=== PATIENT | female | born 1960 | race Caucasian/White ===

== ENCOUNTER 2019-03-13 15:23 | Inpatient (IN) ==
[2019-03-13] MEDS ORDERED: Dexamethasone 4 MG/ML VIAL IVP ONE (16:22)
--- NOTE | 2019-03-13 17:03 | Emergency Department Note ---
Disposition Clinical Impression: Right sided weakness, Neck pain, Right shoulder pain, UTI (urinary tract infection) Disposition: Admitted As Inpatient Condition: Fair Forms: ED Satisfaction Letter Time of Disposition: 18:45 General Adult HPI - General Chief complaint: ED Weakness Stated complaint: fall Time Seen by Provider: 03/13/19 16:12 Source: patient, family Limitations: no limitations Nursing Notes Reviewed: Yes Vital Signs Reviewed: Yes - History of Present Illness HPI Narrative: Patient presents emergency Department with chief complaint of increasing neck pain and right arm pain but also with right arm weakness and right sided facial weakness. Patient states that the symptoms started a month ago. She went to an outside emergency department was told that she just had neck spasms and was put on Percocet and muscle relaxers has had no improvement of her symptoms since that time she has not made an appointment to see her doctor despite no improvement of her symptoms, today she fell forward hitting her head while leaning over because of pain she was hunched over because of pain in her arm and then fell forward and hit her head. She has a headache since hitting her head but no loss of consciousness. She states she still has severe right-sided shoulder and neck pain but also complains of right facial numbness, lip heaviness and swollen sensation as well as right arm weakness. She has had strokes in the past and this reminds her of her prior stroke she does not think she is expressing any right leg weakness but states that she could be. 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 Patient states that she thinks maybe she has had a little bit of slurring of her speech. She denies any CVA chest pain or shortness of breath fever chills cough sputum production. She denies abdominal pain nausea vomiting. She denies any other acute concerns. Pain Scale: 8 - Related Data Home Medications Medication Instructions Recorded Confirmed Alprazolam [Xanax] 1 mg PO TID 08/31/15 10/03/16 Aspirin Enteric Coated [Aspirin EC] 81 mg PO DAILY 08/31/15 10/03/16 Esomeprazole Magnesium [Nexium] 40 mg PO HS 08/31/15 10/03/16 Insulin DETEMIR [Levemir] 40 unit SQ HS 08/31/15 10/03/16 Lisinopril [Zestril] 20 mg PO BID 08/31/15 10/03/16 Metoprolol [Lopressor] 50 mg PO DAILY 08/31/15 10/03/16 Folic Acid 1 mg PO DAILY 10/03/16 10/03/16 Insulin ASPART [NovoLOG] 7 - 12 unit SQ TIDWM 10/03/16 10/03/16 Methotrexate [Otrexup] 15 mg PO SA 10/03/16 10/03/16 Previous Rx's Medication Instructions Recorded Hydrocodone/Acetaminophen 1 each PO Q6H #15 tablet 10/03/16 [Hydrocodon-Acetaminophn 10-325] Sulfamethoxazole/Trimeth DS 1 each PO BID #20 tablet 10/03/16 [Bactrim DS] Allergies Allergy/AdvReac Type Severity Reaction Status Date / Time tramadol Allergy Hypertensio Verified 10/03/16 09:22 n TAPE AdvReac BLISTERS Uncoded 08/31/15 11:00 All systems ED: reviewed and negative except as stated. Review of Systems: As Per HPI Past Medical History - Past Medical History Medical history: Reports: CVA, diabetes, GERD, hypertension, RA Surgical history: Reports: appendectomy, cholecystectomy, other Psychiatric history: Reports: anxiety, depression - Social History Smoking Status: Former smoker Smokeless Tobacco Status: No Alcohol use: Reports: none Drug use: Reports: none Physical Exam - General Limitations: no limitations General appearance: alert, in no apparent distress - Head Head exam: normocephalic, other (Small hematoma and abrasion noted over the right eye brow) - Eye Eye exam: Present: normal appearance, PERRL - ENT ENT exam: normal exam, normal oropharynx - Neck Neck exam: Present: normal inspection, full ROM, tenderness (Some mild tenderness of the paraspinal musculature on the right). Absent: meningismus - Chest Chest inspection: Present: normal inspection - Respiratory Respiratory exam: Present: normal lung sounds bilaterally. Absent: respiratory distress, wheezes - Cardiovascular Cardiovascular exam: Present: regular rate, normal rhythm. Absent: normal heart sounds, rubs, gallop - Abdominal Exam Abdominal exam: Present: soft, Non-Tender - Extremities Exam Extremities exam: Present: normal inspection, tenderness (Tenderness to palpation of the right shoulder region, at least partially reproduces her reported pain, old rotator cuff surgical site appears healthy. Decreased range of motion in relation to raising arm up over the head seemingly related to pain cannot completely rule out actual weakness as this cause.). Absent: full ROM - Expanded Lower Extremity Exam Neurovascular/Tendon exam: Present: normal capillary refill. Absent: pulse deficit, extremity cold to touch, pallor Gait: observed and normal - Back Exam Back exam: Present: normal inspection, full ROM. Absent: tenderness, CVA tenderness (R), CVA tenderness (L) - Neurological Exam Neurological exam: Present: alert, oriented X3, other (The patient does appear to have a slight right-sided facial droop, with puffing out her cheeks for right cheek does not puff out as much and with smile her right side does not go quite as much she describes decreased sensation on the right side her face compared to the left, but has a history of Mejia's palsy although reports that she had previously had resolution of symptoms. Right upper extremity has diminished biceps triceps and drying oven attendant strength compared to the left upper, but demonstrates 4+ to 5 minus strength in all muscle groups she can hold both arms in the air for 10 seconds without droop. Right lower extremity reveals normal strength of plantarflexion and dorsiflexion of the feet bilaterally. Right leg she is able hold the air for 5 seconds although does drop down slightly compared to the left leg and seems maybe slightly weaker.) - Psychiatric Psychiatric exam: Present: anxious - Skin Skin exam: Present: warm, dry, intact, normal color. Absent: rash, diaphoresis Course Vital Signs Temperature 98.2 F 03/13/19 15:48 Pulse Rate 92 03/13/19 15:48 Respiratory Rate 16 03/13/19 15:48 Blood Pressure 157/109 03/13/19 15:48 O2 Sat by Pulse Oximetry 98 03/13/19 15:48 Temperature 98.2 F 03/13/19 15:48 Pulse Rate 92 03/13/19 15:48 Respiratory Rate 16 03/13/19 15:48 Blood Pressure 157/109 03/13/19 15:48 O2 Sat by Pulse Oximetry 98 03/13/19 15:48 Oxygen Delivery Oxygen Delivery Room Air Medical Decision Making - MDM Narrative Medical decision making narrative: Patient's symptoms are very difficult to assess in regards to whether or not her reported weakness is related to pain she has a history of prior stroke but she also has a history of Mejia's palsy and also has a history of chronic pain issues and shoulder surgeries and multiple prior problems. She does have some right- sided weakness is has however been present for all month, she did not have a workup previously for this. She reports worsening over the last 24 hours but nothing within the time frame for TPA. Workup was initiated for possible stroke as well as possible trauma, related to her fall hitting her head. 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 CT of the cervical spine showed disc protrusions at C6-C7 and C5-C6 no fracture no acute abnormality Basic laboratory studies showed mild hyperglycemia of 263, and a mild accent ptosis of 12,000, no other acute blood abnormality. Patient has evidence for UTI positive nitrite positive Estrace positive white blood cells positive bacteria. Patient was given a dose of IV Rocephin for this. Upon presentation she was given IV Decadron for her neck pain, she had already had Percocet and a muscle relaxer at home. After imaging showed no CVT findings she was also given IV Toradol, she was also given a by mouth aspirin for potential stroke like symptoms. According to the after further talking and the she has not had strokelike symptoms for over 3-4 years overall small, she has no chronic deficits from a similar she has had Mejia's palsy in the past she does have some right upper extremity weakness, and questions some right-sided leg weakness she also is face symptoms and I feel like her speech sounds just slightly slurred the states he is not sure of its any different or not. She will be admitted to the hospital for further evaluation and management of potential strokelike symptomatology. - Lab Data Result diagrams: 03/13/19 16:43 03/13/19 16:43 Lab Results 03/13/19 03/13/19 03/13/19 Range/Units 16:43 16:43 16:56 WBC 12.2 H (4.3-11.1) K/mcL RBC 5.07 H (3.82-4.97) M/mcL Hgb 14.7 (11.5-15.4) g/dL Hct 43.0 (35.3-44.9) % MCV 84.8 (83.0-100.0) fL MCH 29.0 (28.0-33.3) pg MCHC 34.2 (31.6-35.5) g/dL RDW 13.0 (11.5-14.5) % Plt Count 308 (140-400) K/mcL MPV 9.1 L (9.4-12.4) fL Immature Gran % 0.3 (0-4) % Seg Neutrophils % 57.1 % Lymphocytes % 31.5 % Monocytes % 8.0 % Eosinophils % 2.7 % Basophils % 0.4 % Neutrophils # 6.9 (1.6-8.9) K/mcL Lymphocytes # 3.8 (0.6-4.6) K/mcL Monocytes # 1.0 (0.0-1.3) K/mcL Eosinophils # 0.3 (0.0-0.6) K/mcL Basophils # 0.1 (0.0-0.2) K/mcL Sodium 135 L (136-145) mEq/L Potassium 4.1 (3.5-5.1) mEq/L Chloride 103 (98-107) mEq/L Carbon Dioxide 23 (23-29) mEq/L BUN 18 (8-23) mg/dL Creatinine 0.85 (0.60-1.20) mg/dL Est GFR ( Amer) > 60 (> 60) Est GFR (Non-Af Amer) > 60 (> 60) BUN/Creatinine Ratio 21 (6-26) Glucose 263 H (70-105) mg/dL Calculated Osmolality 291 (280-300) Calcium 9.7 (8.6-10.3) mg/dL Magnesium 1.7 (1.6-2.6) mg/dL Troponin I < 0.03 (< 0.04) ng/mL Urine Color Dark Yellow (Yellow) Urine Clarity Turbid A (Clear) Urine pH 5.0 (5.0-8.0) pH Units Ur Specific [place] 1.029 H (1.010-1.025) Urine Protein 100 H (Neg-Trace) mg/dL Urine Glucose (UA) >=1000 H (Normal) mg/dL Urine Ketones Trace H (Negative) mg/dL Urine Blood Large H (Negative) Urine Nitrite Negative (Negative) Urine Bilirubin Negative (Negative) Urine Urobilinogen Normal (Normal) mg/dL Ur Leukocyte Esterase Moderate H (Negative) Urine Microscopic RBC Present (0-3) per hpf Urine Microscopic WBC TNTC H (0-3) per hpf Ur Squamous Epith Cells Many H (None-Few) per lpf Urine Bacteria Many H (None-Few) per hpf Ur Culture Indicated? YES A (NO)
[2019-03-13 17:05] LABS: Basophils # 0.1 K/mcL (0.0-0.2); Basophils % 0.4 %; Eosinophils # 0.3 K/mcL (0.0-0.6); Eosinophils % 2.7 %; Hemoglobin 14.7 g/dL (11.5-15.4); Immature Granulocytes % 0.3 % (0-4); Lymphocytes # 3.8 K/mcL (0.6-4.6); Lymphocytes % 31.5 %; Mean Corpuscular HGB Conc 34.2 g/dL (31.6-35.5); Mean Corpuscular Volume 84.8 fL (83.0-100.0); Mean Platelet Volume 9.1 fL (9.4-12.4); Neutrophils # 6.9 K/mcL (1.6-8.9); Platelet Count 308 K/mcL (140-400); Red Blood Count 5.07 M/mcL (3.82-4.97); Segmented Neutrophils % 57.1 %; White Blood Count 12.2 K/mcL (4.3-11.1)
[2019-03-13 17:08] LABS: Bilirubin,Urine Negative (Negative); Blood,Urine Large (Negative); Clarity,Urine Turbid (Clear); Color,Urine Dark Yellow (Yellow); Glucose,Urine (UA) >=1000 mg/dL (Normal); Ketones,Urine Trace mg/dL (Negative); Leukocyte Esterase,Urine Moderate (Negative); Nitrite,Urine Negative (Negative); Protein,Urine 100 mg/dL (Neg-Trace); Specific Gravity,Urine 1.029 (1.010-1.025); Urobilinogen,Urine Normal (Normal)
[2019-03-13 17:09] LABS: Bacteria,Urine Many per hpf (None-Few); Squamous Epithelial Cell,Urine Many per lpf (None-Few); WBC,Urine TNTC per hpf (0-3)
[2019-03-13 17:34] LABS: RBC,Urine Present per hpf (0-3)
[2019-03-13 17:38] LABS: BUN/Creatinine Ratio 21 (6-26); Blood Urea Nitrogen 18 mg/dL (8-23); Calcium 9.7 mg/dL (8.6-10.3); Carbon Dioxide 23 mEq/L (23-29); Chloride 103 mEq/L (98-107); Glucose 263 mg/dL (70-105); Magnesium 1.7 mg/dL (1.6-2.6); Osmolality,Calculated 291 (280-300); Potassium 4.1 mEq/L (3.5-5.1); Sodium 135 mEq/L (136-145); Troponin I < 0.03 ng/mL (< 0.04); eGFR For African Americans > 60 (> 60); eGFR For Non-African Americans > 60 (> 60)
[2019-03-13] MEDS ORDERED: cefTRIAXone 1,000 MG in Water for inj. (sterile) 20 ML 10 ML IVP ONE (18:31)
[2019-03-13] MEDS ORDERED: Aspirin 325 MG TABLET PO ONE (18:38)
[2019-03-13] MEDS ORDERED: Ketorolac 30 MG/ML VIAL IVP ONE (18:38)
--- NOTE | 2019-03-13 22:52 | Internal Med History&Physical ---
<Raza Rodríguez S - Last Filed: 03/14/19 02:18> Date of Encounter: 03/14/19 Time of Encounter: 23:17 Internal Medicine - H&P: HPI Chief complaint: weakness Admitted From: Home Plans for Post Hospital Care: Home History of present illness: Ms. Daniels is a 59 year old female with PMH of CVA, diabetes, GERD, hypertension, and RA on MTX. She is presenting to the ER with the chief complaint of increasing pain in her neck and arm. She also has weakness and although it is chronic, she has acutely worsened symptoms. She has facial weakness as well. She does have a hx of Mejia's palsy but has no lasting deficits and reported to her SO that "her s/s might be coming back." She c/o complete right face weakness, li p numbness, eye lid numbness. She denies right LE weakness. She states noticed her face was droopy and speech slurred. She did also report falling today and hitting her head, states that she had no LOC. She is unsure what precipitated her fall and she states that she just all of a sudden fell forward. Denies any chest pain or palpiltations previously. Denies pre-syncopal symptoms. She also c/o dysuria x 1 week in duration. She denies hematuria. Does have some increase in frequency. She was found to have evidence of UTI on UA in the ER. CT head showed chronic ischemic changes, low lying cerebellar tonsils without acute bleed. She will be admitted for further evaluation. Past Med Surg Social Fam HX - Past Medical History Medical history: CVA, diabetes, GERD, hypertension, RA Additional medical history: HTN. History of CVA. GERD. DM. Urge incontinence Psychiatric history: anxiety, depression - Past Surgical History Surgical History: appendectomy, cholecystectomy, other Additional surgical history: TUBAL. back sx. right kidney removed - Social History Smoking Status: Former smoker Smokeless Tobacco Status: No Alcohol use: none Drug use: none - Family History Father Hx Family Cardiac Disorders: Yes Mother Hx Family Cardiac Disorders: Yes Internal Medicine - H&P: Meds Alprazolam [Xanax] 1 mg PO TID PRN 08/31/15 [History] Aspirin Enteric Coated [Aspirin EC] 81 mg PO DAILY 08/31/15 [History] Esomeprazole Magnesium [Nexium] 40 mg PO HS 08/31/15 [History] Insulin DETEMIR [Levemir] 40 unit SQ HS 08/31/15 [History] Lisinopril [Zestril] 20 mg PO BID 08/31/15 [History] Metoprolol [Lopressor] 50 mg PO DAILY 08/31/15 [History] Folic Acid 1 mg PO DAILY 10/03/16 [History] Insulin ASPART [NovoLOG] 7 - 12 unit SQ TIDWM 10/03/16 [History] Methotrexate [Otrexup] 15 mg PO SA 10/03/16 [History] Sulfamethoxazole/Trimeth DS [Bactrim DS] 1 each PO BID #20 tablet 10/03/16 [Rx] Hydrocodone/Acetaminophen [Hydrocodon-Acetaminophn 10-325] 1 each PO Q6H PRN 0 03/13/19 [History] Allergy/AdvReac Type Severity Reaction Status Date / Time tramadol Allergy Hypertensio Verified 10/03/16 09:22 n TAPE AdvReac BLISTERS Uncoded 08/31/15 11:00 All Systems PM: A 10-system review of systems was performed and is negative for pertinent findings except as documented above in the HPI. - Constitutional Constitutional: falls, no chills, no fever(s) - EENT Eyes: no blurry vision, no change in vision Ears: no tinnitus Nose, mouth and throat: no bleeding gums - Cardiovascular Cardiovascular ROS IM: lightheadedness, no chest pain, no diaphoresis, no dyspnea, no dyspnea on exertion - Respiratory Respiratory: no cough, no dyspnea, no dyspnea on exertion - Gastrointestinal Gastrointestinal: no abdominal pain, no diarrhea, no nausea, no vomiting - Genitourinary Genitourinary: dysuria, urinary frequency, no hematuria - Musculoskeletal Musculoskeletal ROS IM: neck pain, numbness, tingling, no back pain - Integumentary Integumentary IM: no erythema, no unusual bruising - Neurological Neurological ROS: dizziness, focal weakness, frequent falls, lack of coordination, numbness, tingling, weakness, no abnormal gait, no loss of vision - Psychiatric Psychiatric: no anxiety, no depression - Endocrine Endocrine IM: no fatigue - Hematologic/Lymphatic Hematologic/Lymphatic: no easy bleeding, no easy bruising - Constitutional Vitals: Temp Pulse Resp BP Pulse Ox 98.2 F 77 18 187/108 97 03/13/19 15:48 03/13/19 20:03 03/13/19 20:03 03/13/19 20:03 03/13/19 20:03 Exam: general - aox3, nad, laying in bed comfortably heent - ncat, EOMI, PERRLA, MMM neck - supple, no jvd cardio - rrr,s1s2 cta no mrg lungs - ctab without wheeze/rhonchi/rales, not in respiratory distress abd - mild suprapubic tenderness without rebound or guarding, no peritoneal signs back - no rash, no cva tenderness neuro - right sided weakness and diminished strength CN5: decreased sensation of the right face CN7: unable to lift right forehead as high as left, appears to have weakness with puffing cheeks out and asymmetrical smile abnormal finger to nose test on the right heel to junior test ok both sides skin - warm,dry,intact; good skin turgor psych - appropriate mood/aafffeect Internal Med - H&P Results - Labs CBC & Chem 7: 03/14/19 00:10 03/14/19 00:10 Labs: Short CBC 03/13/19 Range/Units 16:43 WBC 12.2 H (4.3-11.1) K/mcL Hgb 14.7 (11.5-15.4) g/dL Hct 43.0 (35.3-44.9) % Plt Count 308 (140-400) K/mcL Neutrophils # 6.9 (1.6-8.9) K/mcL BMP 03/13/19 16:43 Sodium 135 L Potassium 4.1 Chloride 103 Carbon Dioxide 23 BUN 18 Creatinine 0.85 Glucose 263 H Calcium 9.7 Cardiac Enzymes 03/13/19 Range/Units 16:43 Troponin I < 0.03 (< 0.04) ng/mL Urine 03/13/19 Range/Units 16:56 Urine Color Dark Yellow (Yellow) Urine Clarity Turbid A (Clear) Urine pH 5.0 (5.0-8.0) pH Units Ur Specific [place] 1.029 H (1.010-1.025) Urine Protein 100 H (Neg-Trace) mg/dL Urine Glucose (UA) >=1000 H (Normal) mg/dL - Impressions ITS Impressions Cervical Spine CT 03/13/19 16:22 IMPRESSION: No evidence of an acute cervical spine fracture. Straightening of the normal cervical lordosis may be secondary to degenerative change, positioning and/or muscle spasm. Degenerative disc disease with broad-based disc protrusions/herniations at C5-C6 and C6-C7. D/ / Carlton Buckley MD / Carlton Buckley MD Interpreting Provider: Carlton Buckley MD Chest X-Ray 03/13/19 16:22 IMPRESSION: No evidence of acute cardiopulmonary disease. D/ / Mario Carvajal MD / Mario Carvajal MD Interpreting Provider: Mario Carvajal MD Head CT 03/13/19 16:22 IMPRESSION: Chronic ischemic changes as above. No acute intracranial abnormality. Low position of the cerebellar tonsils. 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 XR chest showing no acute cardiopulmonary disease Plan: - NIHSS stroke scaling - neuro checks - HbA1c pending - lipid panel pending - neurology consulted - MRI head/brain and c-spine for AM - allow for permissive HTN - ECHO and carotid US pending - FEN: ADA diet after bedside swallow - dvt proph: scd - dispo: neurology evaluation, PTOT evaluation (2) UTI (urinary tract infection) Current Visit: Yes Status: Acute Assessment and plan: Pt with 1 week hx of dysuria UA (+) for ketones, blood, leukocyte esterase and WBC Only meets 1 SIRS criteria for WBC, remains afebrile No CVA tenderness on exam Plan: - con't rocephin day 1 - urine cx pending Qualifiers: Urinary tract infection type: acute cystitis Hematuria presence: without hematuria Qualified Code(s): N30.00 - Acute cystitis without hematuria (3) T2DM (type 2 diabetes mellitus) Current Visit: No Status: Chronic Assessment and plan: T2DM on home insulin. LDSS. ADA diet. Accuchecks. Levemir 12 u SQ hs. 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 Qualifiers: Hypertension type: essential hypertension Qualified Code(s): I10 - Essential (primary) hypertension (6) GERD (gastroesophageal reflux disease) Current Visit: No Status: Chronic Assessment and plan: con't home meds when reconciled. Qualifiers: Esophagitis presence: esophagitis presence not specified Qualified Code(s): K21.9 - Gastro-esophageal reflux disease without esophagitis (7) Neck pain Current Visit: Yes Status: Acute Assessment and plan: See above for right sided weakness. (8) Right shoulder pain Current Visit: Yes Status: Acute Assessment and plan: See above. Qualifiers: Chronicity: unspecified Qualified Code(s): M25.511 - Pain in right shoulder - Time Spent With Patient Total time spent is greater than 50% in coordination of care (as documented) at patient's floor/unit and/or counseling patient: 25 - 35 minutes <Tej Zimmer - Last Filed: 03/14/19 08:04> Date of Encounter: 03/13/19 Internal Medicine - H&P: HPI History of present illness: Ms. Daniels is a 59 year old female All Systems PM: A 10-system review of systems was performed and is negative for pertinent findings except as documented above in the HPI. - Constitutional Vitals: Temp Pulse Resp BP Pulse Ox 98.3 F 68 14 145/79 94 03/14/19 07:30 03/14/19 07:30 03/14/19 07:30 03/14/19 07:30 03/14/19 07:30 Internal Med - H&P Results - Labs CBC & Chem 7: 03/14/19 00:10 03/14/19 00:10 Labs: Short CBC 03/13/19 03/14/19 Range/Units 16:43 00:10 WBC 12.2 H 10.2 (4.3-11.1) K/mcL Hgb 14.7 14.1 (11.5-15.4) g/dL Hct 43.0 40.7 (35.3-44.9) % Plt Count 308 279 (140-400) K/mcL Neutrophils # 6.9 (1.6-8.9) K/mcL BMP 03/13/19 03/14/19 16:43 00:10 Sodium 135 L 133 L Potassium 4.1 4.3 Chloride 103 102 Carbon Dioxide 23 20 L BUN 18 19 Creatinine 0.85 0.70 Glucose 263 H 328 H Calcium 9.7 9.4 Cardiac Enzymes 03/13/19 Range/Units 16:43 Troponin I < 0.03 (< 0.04) ng/mL Urine 03/13/19 Range/Units 16:56 Urine Color Dark Yellow (Yellow) Urine Clarity Turbid A (Clear) Urine pH 5.0 (5.0-8.0) pH Units Ur Specific [place] 1.029 H (1.010-1.025) Urine Protein 100 H (Neg-Trace) mg/dL Urine Glucose (UA) >=1000 H (Normal) mg/dL - Impressions ITS Impressions Cervical Spine CT 03/13/19 16:22 IMPRESSION: No evidence of an acute cervical spine fracture. Straightening of the normal cervical lordosis may be secondary to degenerative change, positioning and/or muscle spasm. Degenerative disc disease with broad-based disc protrusions/herniations at C5-C6 and C6-C7. D/ / Carlton Buckley MD / Carlton Buckley MD Interpreting Provider: Carlton Buckley MD Chest X-Ray 03/13/19 16:22 IMPRESSION: No evidence of acute cardiopulmonary disease. D/ / Mario Carvajal MD / Mario Carvajal MD Interpreting Provider: Mario Carvajal MD Head CT 03/13/19 16:22 IMPRESSION: Chronic ischemic changes as above. No acute intracranial abnormality. Low position of the cerebellar tonsils. D/ / Carlton Buckley MD / Carlton Buckley MD Interpreting Provider: Carlton Buckley MD - Time Spent With Patient Total time spent is greater than 50% in coordination of care (as documented) at patient's floor/unit and/or counseling patient: - Attending Attestation I performed a history and physical examination patient and discussed her management with the resident. I reviewed the resident's note and agree with the documented the plan of care.
[2019-03-13] MEDS ORDERED: D5% in Water 1,000 ML IVC PRN (22:54)
[2019-03-13] MEDS ORDERED: Naloxone 0.4 MG/ML INJ IVP PRN (22:54)
[2019-03-13] MEDS ORDERED: *HR* Dextrose 50 % in Water (Syg) 50 ML SYRINGE IVP PRN (22:54)
[2019-03-13] MEDS ORDERED: Dextrose Gel 15 GM/37.5 ML TUBE PO PRN ×2 (22:54)
[2019-03-13] MEDS ORDERED: *HR* Heparin 5,000 UNIT/ML VIAL SQ SCH (23:00)
[2019-03-13] MEDS: Insulin LISPRO 300 UNITS/3 ML VIAL SQ SCH ×2 (23:29→23:30)
[2019-03-14] MEDS ORDERED: *HR* HYDROcodone/Acet 10/325 mg TABLET PO ONE (00:09)
[2019-03-14] MEDS ORDERED: Naloxone 0.4 MG/ML INJ IVP PRN (00:18)
[2019-03-14 00:42] LABS: Hematocrit 40.7 % (35.3-44.9); Hemoglobin 14.1 g/dL (11.5-15.4); Mean Corpuscular HGB Conc 34.6 g/dL (31.6-35.5); Mean Corpuscular Hemoglobin 29.3 pg (28.0-33.3); Mean Corpuscular Volume 84.4 fL (83.0-100.0); Mean Platelet Volume 9.1 fL (9.4-12.4); Platelet Count 279 K/mcL (140-400); Red Blood Count 4.82 M/mcL (3.82-4.97); Red Cell Distribution Width 12.9 % (11.5-14.5); White Blood Count 10.2 K/mcL (4.3-11.1)
[2019-03-14 00:49] LABS: BUN/Creatinine Ratio 27 (6-26); Blood Urea Nitrogen 19 mg/dL (8-23); Calcium 9.4 mg/dL (8.6-10.3); Carbon Dioxide 20 mEq/L (23-29); Chloride 102 mEq/L (98-107); Chol/HDL Ratio 3.6 (0-4.9); Glucose 328 mg/dL (70-105); Osmolality,Calculated 291 (280-300); Potassium 4.3 mEq/L (3.5-5.1); Sodium 133 mEq/L (136-145); eGFR For African Americans > 60 (> 60); eGFR For Non-African Americans > 60 (> 60)
[2019-03-14 00:55] LABS: INR 1.1; Prothrombin Time 11.9 Seconds (9.4-12.1)
[2019-03-14] MEDS ORDERED: D5% in Water 1,000 ML IVC PRN (02:16)
[2019-03-14] MEDS ORDERED: ALPRAZolam 1 MG TABLET PO PRN (04:14)
[2019-03-14] MEDS: *HR* HYDROcodone/Acet 10/325 mg TABLET PO PRN ×2 (04:30→21:11)
[2019-03-14] MEDS ORDERED: Perflutren Lipid Microsphere 1.3 ML in 0.9 % Sodium Chloride 8.7 ML IVP ONE (08:28)
[2019-03-14 08:30] LABS: Estimated Average Glucose 255 mg/dl; Hemoglobin A1C 10.5 %
[2019-03-14] MEDS: Aspirin 81 MG TAB.CHEW PO SCH (09:51)
[2019-03-14] MEDS: cefTRIAXone 1,000 MG in Water for inj. (sterile) 20 ML 10 ML IVP SCH (09:51)
[2019-03-14] MEDS: Insulin LISPRO 300 UNITS/3 ML VIAL SQ SCH ×4 (09:52→21:11)
--- NOTE | 2019-03-14 09:57 | Neurology - Consult Note ---
<Yaniv Woods - Last Filed: 03/14/19 11:29> Date of Encounter: 03/14/19 Time of Encounter: 09:51 Assessment and Plan (1) Right sided weakness Current Visit: Yes Status: Acute neuro consulted with concerns for suspected CVA Presents with increasing right-sided weakness and sensory deficits as well as falls ongoing for approximately 3 weeks Symptoms are progressing over the last 24 hours and include facial droop and slurred speech which has since resolved Etiology remains unclear CT of head in the ED negative for acute intracranial abnormality showing chronic infarcts and chronic ischemic disease proceed with stroke workup PLAN: -MRI head/brain without contrast -BL Carotid doppler -TTE -Continue ASA, recommend adding statin for now -NIHSS now and then per protocol -c/w tx underlying medical conditions; c/w medical and supportive care History of Present Illness Chief complaint: Rt sided sensory loss and loss of strength x3 weeks HPI: Ms. Daniels is a 59 year old female the PMH of CVA, DM, HTN and are on MTX. She presented to the ED with a chief complaint of right-sided arm and leg pain. This has been ongoing x 3 weekshe has been getting progressively worse. Yesterday she reports developing right-sided facial droop and slurred speech. 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 This time of my assessment this morning the slurred speech and facial droop has resolved but she is now complaining of severely diminished right arm and leg sensation as well as bilateral facial numbness and left arm numbness with sparing of the left leg. She reports difficulty moving her Rt leg and states that it was dragging yesterday morning while getting out of bed to use the bathroom. This resulted in a fall with her hitting her head. She denies any headaches, visual disturbances, dysphagia, head or neck pain/stiffness, denies any chest pain, dyspnea, or palpitations. She admits to dysuria for approximately the last week. CT of the C-spine completed and negative for acute fractures. Additionally degenerative changes. CT of head negative for acute intercranial abnormality. revealing bilateral remote basal ganglia lacunar infarcts most numerous on the left with mild patchy periventricular and subcortical white matter low attenuation that is nonspecific most consistent with chronic small vessel ischemia. There is also low position of the cerebellar tonsils. Past Med Surg Social Fam HX - Past Medical History Medical history: CVA, diabetes, GERD, hypertension, RA Additional medical history: HTN. History of CVA. GERD. DM. Urge incontinence Psychiatric history: anxiety, depression - Past Surgical History Surgical History: appendectomy, cholecystectomy, other Additional surgical history: TUBAL. back sx. right kidney removed - Social History Smoking Status: Former smoker Smokeless Tobacco Status: No Alcohol use: none Drug use: none - Family History Father Hx Family Cardiac Disorders: Yes Mother Hx Family Cardiac Disorders: Yes Medications and Allergies Alprazolam [Xanax] 1 mg PO TID PRN 08/31/15 [History] Aspirin Enteric Coated [Aspirin EC] 81 mg PO DAILY 08/31/15 [History] Esomeprazole Magnesium [Nexium] 40 mg PO HS 08/31/15 [History] Insulin DETEMIR [Levemir] 40 unit SQ HS 08/31/15 [History] Lisinopril [Zestril] 20 mg PO BID 08/31/15 [History] Metoprolol [Lopressor] 50 mg PO DAILY 08/31/15 [History] Folic Acid 1 mg PO DAILY 10/03/16 [History] Insulin ASPART [NovoLOG] 7 - 12 unit SQ TIDWM 10/03/16 [History] Methotrexate [Otrexup] 15 mg PO SA 10/03/16 [History] Sulfamethoxazole/Trimeth DS [Bactrim DS] 1 each PO BID #20 tablet 10/03/16 [Rx] Hydrocodone/Acetaminophen [Hydrocodon-Acetaminophn 10-325] 1 each PO Q6H PRN 03/13/19 [History] Allergy/AdvReac Type Severity Reaction Status Date / Time tramadol Allergy Hypertensio Verified 10/03/16 09:22 n TAPE AdvReac BLISTERS Uncoded 08/31/15 11:00 All Systems: The remainder of the systems were reviewed and are negative Review of Systems: REVIEW OF SYSTEMS GENERAL: Negative for any nausea, vomiting, fevers, chills NEUROLOGIC: Negative for any blurry vision, blind spots, double vision, dysphagia, hemiparesis, ataxia Positive-unilateral weakness RUE, RLE, disequalibrium, ataxia 2/2 Rt leg weakness, diminished sensation in bilateral upper extremities, B/L face and Right leg, Rt facial droop, and slurred speech HEENT: Positive- falls resulting in her hitting her head CARDIAC: Negative for any chest pain, dyspnea, palpitations GASTROINTESTINAL: Negative for any nausea, vomiting, MUSCULOSKELETAL: Positive unilateral loss of strength RUE, RLE, decreased activity tolerance Physical Examination - Vital Signs Vital Signs: Initial Vital Signs Temp Pulse Resp BP Pulse Ox 98.2 F 92 16 157/109 98 03/13/19 15:48 03/13/19 15:48 03/13/19 15:48 03/13/19 15:48 03/13/19 15:48 - Exam Exam: Examination: General Examination: *CONSTITUTIONAL: Alert and oriented x3, no acute distress *GENERAL APPEARANCE OF PATIENT appears healthy and well groomed *EYES: pupils equal, round, reactive to light and accommodation, conjunctiva clear *CARDIOVASCULAR no peripheral edema, distal temperature normal, dorsalis pedis pulses normal. see vitals Musculoskeletal: *GAIT AND STATION deferred by patient *ASSESSMENT OF MUSCLE STRENGTH IN THE UPPER AND LOWER EXTREMITIES right deltoid, bicep, tricep, sales data analyst strength, hip flexors ,anterior tibialis, dorsoflexion of the foot 4/5, left deltoid, bicep, tricep, sales data analyst strength, hip flexors, anterior tibialis, and dorsoflexion of the foot 4/5; strength is asymmetrical with L>R *MUSCLE TONE IN THE UPPER AND LOWER EXTREMITIES normal. No abnormal movements, fasciculations or atrophy identified. Neurological: *ORIENTATION to person, situation, time and place *RECURRENT AND REMOTE MEMORY intact *ATTENTION AND CONCENTRATION are normal *LANGUAGE FUNCTION no significant aphasia or dysarthia was noted. *FUND OF KNOWLEDGE aware of current events, past history, vocabulary *MENTAL attention span and concentration normal. *CN II optic fundi were normal, no papilledema noted. *CN III,IV, PERRLA extraocular eye movements were full, no nystagmus and no ptosis noted. *CN V B/L diminished sensation of the face *CN VII asymmetrical facial movement with decreased innervation of Rt mouth; has a h/o bells palsy rt face *CN VIII shows no significant hearing loss on exam *CN IX,,X palate elevated symmetrically *CN XI normal strength in the sternocleidomastoid muscles, symmetrical shoulder shrugging. *CN XII Rightward tongue deviation *SENSORY EXAMINATION abnormal sensory exam reporting right-sided sensory loss in the RUQ ED, RLE and right face and diminished left-sided sensation in the left face, LUE with sparing of the LLE *REFLEXES: deep tendon reflexes were normal and symmetrical in the bilateral triceps, biceps and brachioradialis, grade 4/4, left patellar 4/4 abse nt right patellar S/P knee surgery, no pathological reflexes were noted. *CEREBELLAR TESTING normal finger to nose, heel/knee/junior *PAIN LEVEL 5/10 right upper extremity and right lower extremity described as dull and constant Results - Laboratory Findings CBC and BMP: 03/14/19 00:10 03/14/19 00:10 Abnormal lab findings: Abnormal lab results WBC 12.2 K/mcL (4.3-11.1) H 03/13/19 16:43 RBC 5.07 M/mcL (3.82-4.97) H 03/13/19 16:43 MPV 9.1 fL (9.4-12.4) L 03/14/19 00:10 Sodium 133 mEq/L (136-145) L 03/14/19 00:10 Carbon Dioxide 20 mEq/L (23-29) L 03/14/19 00:10 27 (6-26) H 03/14/19 00:10 Glucose 328 mg/dL (70-105) H 03/14/19 00:10 POC Glucose 325 mg/dL (70-99) H 03/13/19 23:22 10.5 % (-5.6) H 03/14/19 00:10 33 mg/dL (40-59) L 03/14/19 00:10 Turbid (Clear) A 03/13/19 16:56 Ur Specific [place] 1.029 (1.010-1.025) H 03/13/19 16:56 100 mg/dL (Neg-Trace) H 03/13/19 16:56 >=1000 mg/dL (Normal) H 03/13/19 16:56 Trace mg/dL (Negative) H 03/13/19 16:56 Large (Negative) H 03/13/19 16:56 Ur Leukocyte Esterase Moderate (Negative) H 03/13/19 16:56 TNTC per hpf (0-3) H 03/13/19 16:56 Ur Squamous Epith Cells Many per lpf (None-Few) H 03/13/19 16:56 Many per hpf (None-Few) H 03/13/19 16:56 Ur Culture Indicated? YES (NO) A 03/13/19 16:56 - Diagnostic Findings Additional findings: CT/CT head/brain wo con IMPRESSION: Chronic ischemic changes as above. No acute intracranial abnormality. Low position of the cerebellar tonsils. CT/CT cervical spine wo con IMPRESSION: No evidence of an acute cervical spine fracture. Straightening of the normal cervical lordosis may be secondary to degenerative change, positioning and/or muscle spasm. Degenerative disc disease with broad-based disc protrusions/herniations at C5-C6 and C6-C7. Consult Discharge Plan - Plan Referrals: Eliz Mcgill MD [Primary Care Provider] - <Jordin Mack - Last Filed: 03/14/19 18:19> Date of Encounter: 03/14/19 Assessment and Plan (1) Right sided weakness Current Visit: Yes Status: Acute I have personally performed a [id number] assessment of the patient and have reviewed the PA/MANAGER LVN note. My impressions are as follows: I agree with the assessment and plan as stated above. MRI scan of the brain and carotid Doppler studies are yet pending. I agree with maintaining aspirin 81 mg daily. Also continued aggressive management of stroke risk factors. Further recommendations will be made pending the outcome of the MRI scan. History of Present Illness HPI: Chart was reviewed, patient was seen and examined independently. Case was discussed with the PEN MAKER. I agree with his assessment of the history of present illness as stated above. Since his assessment the echocardiogram has been completed. The study was suboptimal however no evidence of a cardioembolic source of embolus. All Systems: The remainder of the systems were reviewed and are negative Review of Systems: The balance of the systems review is negative. Physical Examination - Vital Signs Vital Signs: Initial Vital Signs Temp Pulse Resp BP Pulse Ox 98.2 F 92 16 157/109 98 03/13/19 15:48 03/13/19 15:48 03/13/19 15:48 03/13/19 15:48 03/13/19 15:48 - Exam Exam: I have personally performed a [id number]-[id number] assessment of the patient and have reviewed the PA/MANAGER LVN note. My impressions are as follows: I agree with the neurologic examination is documented above. Results - Laboratory Findings CBC and BMP: 03/14/19 00:10 03/14/19 00:10 Abnormal lab findings: Abnormal lab results WBC 12.2 K/mcL (4.3-11.1) H 03/13/19 16:43 RBC 5.07 M/mcL (3.82-4.97) H 03/13/19 16:43 MPV 9.1 fL (9.4-12.4) L 03/14/19 00:10 Sodium 133 mEq/L (136-145) L 03/14/19 00:10 Carbon Dioxide 20 mEq/L (23-29) L 03/14/19 00:10 27 (6-26) H 03/14/19 00:10 Glucose 328 mg/dL (70-105) H 03/14/19 00:10 POC Glucose 325 mg/dL (70-99) H 03/13/19 23:22 10.5 % (-5.6) H 03/14/19 00:10 33 mg/dL (40-59) L 03/14/19 00:10 Turbid (Clear) A 03/13/19 16:56 Ur Specific [place] 1.029 (1.010-1.025) H 03/13/19 16:56 100 mg/dL (Neg-Trace) H 03/13/19 16:56 >=1000 mg/dL (Normal) H 03/13/19 16:56 Trace mg/dL (Negative) H 03/13/19 16:56 Large (Negative) H 03/13/19 16:56 Ur Leukocyte Esterase Moderate (Negative) H 03/13/19 16:56 TNTC per hpf (0-3) H 03/13/19 16:56 Ur Squamous Epith Cells Many per lpf (None-Few) H 03/13/19 16:56 Many per hpf (None-Few) H 03/13/19 16:56 Ur Culture Indicated? YES (NO) A 03/13/19 16:56
[2019-03-14] MEDS: Insulin DETEMIR 100 UNIT/ML X5UNITS SQ SCH ×2 (14:28→21:11)
--- NOTE | 2019-03-14 14:43 | Electrocardiograph Report ---
[place] [id number] Test Date: 2019-03-13 Pat Name: Gila Daniels Department: [id number] Room: 3A13 Gender: F [employer] Operator: : 1960 Requested By: Doni Staley Order Number: [id number] Reading MD: Ryan Snyder Measurements Intervals [place] Rate: 84 P: 7 [place]: 158 QRS: 67 QRSD: 99 T: -60 QT: 368 QTc: 435 Interpretive Statements Sinus rhythm Nonspecific T abnormalities, diffuse leads Electronically Signed On 03-14-2019 14:41:44 EDT by Ryan Snyder
--- NOTE | 2019-03-14 14:46 | Internal Med Progress Note ---
Hospitalist Progress Note - Encounter Date of Encounter: 03/14/19 Time of Encounter: 08:00 - Subjective Interval History: ochoa was seen and examiend at bedside she reports that she is feeling better however she continues to have numbness of marli right side of her face. she did have numbness of the right extremities however that has resolved. she does have a fall where she hit the right side of her forehead on marli day of admission. she denies fever, chills, vision changes, N/v/D. has had no neck stiffness or sick contacts. - Exam Vitals: Temp Pulse Resp BP Pulse Ox 98 F 66 18 159/92 94 03/14/19 10:25 03/14/19 10:25 03/14/19 10:25 03/14/19 10:25 03/14/19 10:25 Exam: General: Patient is alert, oriented, no acute distress, speeches comprehendible Head: atraumatic, normocephalic, Eye: normal appearance, PERRL, no scleral icterus, no conjunctival injection ENT: mucous membranes moist, normal external ear exam Neck: normal inspection, trachea midline, full ROM, no carotid bruits Chest: normal inspection, symmetric chest rise Respiratory: Good respiratory effort. Bilateral breath sounds are clear without wheezing, crackles, or rhonchi. Cardiovascular: Regular rate and rhythm. s1 and s2 No clicks, rubs, gallops, or murmors. Abdomen: Bowel sounds present normoactive x-4 quadrants. Abdomen is soft, nondistended. no Epigastric tenderness. No guarding or rebound. No organomegaly noted, obese musculoskeletal: Spontaneously moving all extremities. no edema, no calf tenderness Skin: warm, dry, intact. 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 She moving all extremities, strength is 5 out of 5 in all extremities. [id number] intact pronator drift is negative cranial nerves II through XII is intact except cranial nerve VII from Mejia's palsy. Psych: Patient's affect is normal - Assessment and Plan (1) Right sided weakness Current Visit: Yes Status: Acute Assessment and Plan: right-sided weakness and sensory deficits as well as falls ongoing for approximately [address] of head in the ED negative for acute intracranial abnormality showing chronic infarcts and chronic ischemic disease neurology consulted continue with ASA and lipitor MRI head pending carotid doppler and TTE with bubble study neurochecks as per protocol pt /OT on board A1c 10.5, TSH pending (2) Neck pain Current Visit: Yes Status: Acute Assessment and Plan: physical therapy on board continue pain management no mennigeal signs- ROM is intact in the neck CT neck: No evidence of an acute cervical spine fracture. Straightening of the normal cervical lordosis may be secondary to degenerative change, positioning and/or muscle spasm. Degenerative disc disease with broad-based disc protrusions/herniations at C5-C6 and C6-C7. (3) UTI (urinary tract infection) Current Visit: Yes Status: Acute Assessment and Plan: continue ceftriaxone and follow urine cx (4) GERD (gastroesophageal reflux disease) Current Visit: No Status: Chronic Assessment and Plan: continue PPI (5) Hypertension Current Visit: No Status: Chronic Assessment and Plan: continue home medications once verified if not CI (6) T2DM (type 2 diabetes mellitus) Current Visit: No Status: Chronic Assessment and Plan: uncontrolled A1c is 10.5 started on long acting insulin 10 units BID along with sliding scale and will ad just as per finger sticks. (7) DVT prophylaxis Current Visit: Yes Status: Acute Assessment and Plan: heparin sc - Time Spent with Patient Total time spent is greater than 50% in coordination of care (as documented) at patient's floor/unit and/or counseling patient: Internal Medicine: Result - Labs CBC & Chem 7: 03/14/19 00:10 03/14/19 00:10 Labs: Short CBC 03/13/19 03/14/19 Range/Units 16:43 00:10 WBC 12.2 H 10.2 (4.3-11.1) K/mcL Hgb 14.7 14.1 (11.5-15.4) g/dL Hct 43.0 40.7 (35.3-44.9) % Plt Count 308 279 (140-400) K/mcL Neutrophils # 6.9 (1.6-8.9) K/mcL BMP 03/13/19 03/14/19 16:43 00:10 Sodium 135 L 133 L Potassium 4.1 4.3 Chloride 103 102 Carbon Dioxide 23 20 L BUN 18 19 Creatinine 0.85 0.70 Glucose 263 H 328 H Calcium 9.7 9.4 Cardiac Enzymes 03/13/19 Range/Units 16:43 Troponin I < 0.03 (< 0.04) ng/mL Urine 03/13/19 Range/Units 16:56 Urine Color Dark Yellow (Yellow) Urine Clarity Turbid A (Clear) Urine pH 5.0 (5.0-8.0) pH Units Ur Specific [place] 1.029 H (1.010-1.025) Urine Protein 100 H (Neg-Trace) mg/dL Urine Glucose (UA) >=1000 H (Normal) mg/dL - ABG Interpretation ABG results: PT/INR, D-dimer PT 11.9 Seconds (9.4-12.1) 03/14/19 00:10 - Impressions Impressions Cervical Spine CT 03/13/19 16:22 IMPRESSION: No evidence of an acute cervical spine fracture. Straightening of the normal cervical lordosis may be secondary to degenerative change, positioning and/or muscle spasm. Degenerative disc disease with broad-based disc protrusions/herniations at C5-C6 and C6-C7. D/ / Carlton Buckley MD / Carlton Buckley MD Interpreting Provider: Carlton Buckley MD Chest X-Ray 03/13/19 16:22 IMPRESSION: No evidence of acute cardiopulmonary disease. D/ / Mario Carvajal MD / Mario Carvajal MD Interpreting Provider: Mario Carvajal MD Head CT 03/13/19 16:22 IMPRESSION: Chronic ischemic changes as above. No acute intracranial abnormality. Low position of the cerebellar tonsils. D/ / Carlton Buckley MD / Carlton uBckley MD Interpreting Provider: Carlton Buckley MD Consult Discharge Plan - Plan Referrals: Eliz Mcgill MD [Primary Care Provider] - (3) UTI (urinary tract infection) Qualifiers: Urinary tract infection type: acute cystitis Hematuria presence: without hematuria Qualified Code(s): N30.00 - Acute cystitis without hematuria (4) GERD (gastroesophageal reflux disease) Qualifiers: Esophagitis presence: esophagitis presence not specified Qualified Code(s): K21.9 - Gastro-esophageal reflux disease without esophagitis (5) Hypertension Qualifiers: Hypertension type: essential hypertension Qualified Code(s): I10 - Essential (primary) hypertension (6) T2DM (type 2 diabetes mellitus) 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
[2019-03-14] MEDS ORDERED: Insulin DETEMIR 100 UNIT/ML X5UNITS SQ SCH (21:00)
[2019-03-15] MEDS ORDERED: *HR* Metoprolol 5 MG/5 ML VIAL IVP ONE (05:09)
[2019-03-15] MEDS: *HR* HYDROcodone/Acet 10/325 mg TABLET PO PRN ×3 (06:54→20:48)
[2019-03-15] MEDS: Insulin LISPRO 300 UNITS/3 ML VIAL SQ SCH ×4 (08:40→20:44)
[2019-03-15] MEDS: Aspirin 81 MG TAB.CHEW PO SCH (08:40)
[2019-03-15] MEDS: Insulin DETEMIR 100 UNIT/ML X5UNITS SQ SCH (08:41)
[2019-03-15] MEDS: cefTRIAXone 1,000 MG in Water for inj. (sterile) 20 ML 10 ML IVP SCH (08:41)
--- NOTE | 2019-03-15 11:41 | Internal Med Progress Note ---
Hospitalist Progress Note - Encounter Date of Encounter: 03/15/19 Time of Encounter: 08:00 - Subjective Interval History: She was seen and examined at bedside. Discussed MRI findings of an acute stroke in the right thalamus. She denies any further numbness or weakness of her extremities. No overnight events. Tolerating by mouth diet. Is in agreement with placement with swelling bed for further physical therapy. Denies any chest pain, palpitations, nausea, vomiting or diarrhea. - Exam Vitals: Temp Pulse Resp BP Pulse Ox 98.4 F 62 16 164/88 95 03/15/19 11:17 03/15/19 11:17 03/15/19 11:17 03/15/19 11:17 03/15/19 11:17 Exam: General: Patient is alert, oriented, no acute distress, speeches comprehendible Head: atraumatic, normocephalic, Eye: normal appearance, PERRL, no scleral icterus, no conjunctival injection ENT: mucous membranes moist, normal external ear exam Neck: normal inspection, trachea midline, full ROM, no carotid bruits Chest: normal inspection, symmetric chest rise Respiratory: Good respiratory effort. Bilateral breath sounds are clear without wheezing, crackles, or rhonchi. Cardiovascular: Regular rate and rhythm. s1 and s2 No clicks, rubs, gallops, or murmors. Abdomen: Bowel sounds present normoactive x-4 quadrants. Abdomen is soft, nondistended. no Epigastric tenderness. No guarding or rebound. No organomegaly noted, obese musculoskeletal: Spontaneously moving all extremities. no edema, no calf tenderness Skin: warm, dry, intact. 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 She moving all extremities, strength is 5 out of 5 in all extremities. [id number] intact pronator drift is negative cranial nerves II through XII is intact except cranial nerve VII from Mejia's palsy. Psych: Patient's affect is normal - Assessment and Plan (1) CVA (cerebral vascular accident) Current Visit: Yes Status: Acute Assessment and Plan: Acute subacute infarct identified involving the right thalamus. right-sided weakness and sensory deficits as well as falls ongoing for approximately [address] of head in the ED negative for acute intracranial abnormality showing chronic infarcts and chronic ischemic disease neurology on board ASA and lipitor MRI head Acute subacute infarct identified involving the right thalamus. carotid doppler pending TTE with bubble study - LVEF 60%. Mild concentric left ventricular hypertrophy. neurochecks as per protocol pt /OT on board for swing bed placement A1c 10.5, TSH pending started on losartan for BP control (2) Cervical spinal stenosis Current Visit: Yes Status: Acute Assessment and Plan: physical therapy on board continue pain management no mennigeal signs- ROM is intact in the neck CT neck: No evidence of an acute cervical spine fracture. Straightening of the normal cervical lordosis may be secondary to degenerative change, positioning and/or muscle spasm. Degenerative disc disease with broad-based disc protrusions/herniations at C5-C6 and C6-C7. MR neck: IMPRESSION: Straightening of the cervical spine with multilevel degenerative disc disease and associated uncovertebral/facet hypertrophy resulting in canal stenosis at C5-6 and C6-7. Mild right foraminal narrowing at C2-3, moderate left and severe right foraminal narrowing at C3-4, mild to moderate right foraminal narrowing at C4-5, severe bilateral foraminal narrowing at C5-6, moderate to severe right and severe left foraminal narrowing at C6-7, as well as moderate right foraminal narrowing at C7-T1. (3) UTI (urinary tract infection) Current Visit: Yes Status: Acute Assessment and Plan: on ceftriaxone urine cx with pansensitive E.coli (4) GERD (gastroesophageal reflux disease) Current Visit: No Status: Chronic Assessment and Plan: continue PPI (5) Hypertension Current Visit: No Status: Chronic Assessment and Plan: continue home medications once verified if not CI (6) T2DM (type 2 diabetes mellitus) Current Visit: No Status: Chronic Assessment and Plan: uncontrolled A1c is 10.5 increased long acting insulin 12 units BID along with sliding scale and will adjust as per finger sticks. (7) DVT prophylaxis Current Visit: Yes Status: Acute Assessment and Plan: heparin sc - Time Spent with Patient Total time spent is greater than 50% in coordination of care (as documented) at patient's floor/unit and/or counseling patient: Internal Medicine: Result - Labs CBC & Chem 7: 03/14/19 00:10 03/14/19 00:10 - ABG Interpretation ABG results: PT/INR, D-dimer PT 11.9 Seconds (9.4-12.1) 03/14/19 00:10 - Impressions Impressions Echocardiogram 03/14/19 07:00 Impressions: LVEF 60%. Mild concentric left ventricular hypertrophy. Normal LV chamber size, wall thickness and function. Mild left ventricular diastolic dysfunction. Normal right ventricular structure and function. Interatrial septum not well evaluated. Agitated saline given, but never visualized in the heart. Unable to estimate RVSP due to lack of TR jet. Left Ventricular Wall Motion: Rest Echo Findings All wall segments showed normal motion. Findings: Study Quality * Technically adequate exam. ECG Findings * Normal sinus rhythm. Left Ventricle * LVEF 60%. * Normal LV chamber size and function. * Mild concentric left ventricular hypertrophy. * Mild left ventricular diastolic dysfunction. Right Ventricle * Normal right ventricular structure and function. Left Atrium * Mildly dilated left atrium. Right Atrium * Normal right atrial size. Interatrial Septum * Interatrial septum not well evaluated. Agitated saline given, but never visualized in the heart. Aortic Valve * Trileaflet aortic valve. * Mildly sclerotic aortic valve leaflets. * No aortic regurgitation. * No aortic stenosis. Mitral Valve * Normal mitral valve structure and function. * No mitral regurgitation. * No mitral stenosis. Tricuspid Valve * Normal tricuspid valve structure and function. * No tricuspid regurgitation. * Unable to estimate RVSP due to lack of TR jet. Pulmonic Valve * Pulmonic valve not well visualized. * No pulmonic regurgitation. Aorta * Normally sized aortic root. Pericardium * The pericardium appears normal. IVC * Normal IVC dimensions and inspiratory collapse. Pulmonary Artery * Normal visualized portions of the main pulmonary artery. Brain MRI 03/14/19 08:00 IMPRESSION: Acute subacute infarct identified involving the right thalamus. Additional chronic lacune infarcts identified involving both basal ganglia regions. [id number] chronic small vessel ischemic disease. D/ / Josiah Daniel / Josiah Daniel Interpreting Provider: Josiah Daniel Cervical Spine MRI 03/14/19 08:00 IMPRESSION: Straightening of the cervical spine with multilevel degenerative disc disease and associated uncovertebral/facet hypertrophy resulting in canal stenosis at C5-6 and C6-7. Mild right foraminal narrowing at C2-3, moderate left and severe right foraminal narrowing at C3-4, mild to moderate right foraminal narrowing at C4-5, severe bilateral foraminal narrowing at C5-6, moderate to severe right and severe left foraminal narrowing at C6-7, as well as moderate right foraminal narrowing at C7-T1. D/ / Ankit Keenan / Ankit Keenan Interpreting Provider: Ankit Keenan Consult Discharge Plan - Plan Referrals: Eliz Mcgill MD [Primary Care Provider] - (1) CVA (cerebral vascular accident) Qualifiers: CVA mechanism: unspecified Qualified Code(s): I63.9 - Cerebral infarction, unspecified (3) UTI (urinary tract infection) Qualifiers: Urinary tract infection type: acute cystitis Hematuria presence: without h ematuria Qualified Code(s): N30.00 - Acute cystitis without hematuria (4) GERD (gastroesophageal reflux disease) Qualifiers: Esophagitis presence: esophagitis presence not specified Qualified Code(s): K21.9 - Gastro-esophageal reflux disease without esophagitis (5) Hypertension Qualifiers: Hypertension type: essential hypertension Qualified Code(s): I10 - Essential (primary) hypertension (6) T2DM (type 2 diabetes mellitus) 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
--- NOTE | 2019-03-15 13:30 | Electrocardiograph Report ---
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
--- NOTE | 2019-03-15 14:30 | Neurology Progress Note ---
Date of Encounter: 03/15/19 Time of Encounter: 14:27 Assessment and Plan (1) Right sided weakness Current Visit: Yes Status: Acute I am inclined to believe that the patient's most pressing concern which is that of pain and paresthesia and weakness of the right upper extremity is more than likely due to radiculopathy. Although she has had an acute infarct in the right thalamus, she has no symptoms of the left upper and lower extremity comparable to this. Perhaps the slurred speech that she complained of may have been associated with this. The MRI of the cervical spine however reveal significant degenerative changes and multiple different levels with neural foraminal encroachment present in multiple levels bilaterally. I would recommend pain management for now. Perhaps a trial of IV steroids along with tramadol, and Neurontin might be beneficial in the short term. Ultimately it would benefit her to have an EMG study of the right upper extremity with further recommendations to be made pending the results. Regarding the thalamic infarct, risk factor management is paramount. I might recommend starting her on Plavix and discontinuing the aspirin. Subjective Interval history: The chart was reviewed, the patient was seen and examined. Case was discussed with the hospitalist. Patient continues to experience right neck and arm pain. She also experiences numbness of the right arm. This is her primary complaint. MRI scan of the brain reveals an area of acute infarct in the right thalamus however she denies any numbness tingling paresthesias of pain of the left arm or leg. MRI scan of the brain also reveals significant deep white matter changes however left more pronounced than on the right. MRI of the cervical spine reveals significant degenerative change at multiple levels with severe bilateral neural foraminal narrowing at the C5-C6 level, as well as at the C6-C7 level. Objective - Constitutional Vitals: Temp Pulse Resp BP Pulse Ox 97.7 F 61 20 179/83 95 03/15/19 14:09 03/15/19 14:09 03/15/19 14:03/15/19 14:03/15/19 14:09 Exam: Exam: Examination: General Examination: *CONSTITUTIONAL: Alert and oriented x3, no acute distress *GENERAL APPEARANCE OF PATIENT appears healthy and well groomed *EYES: pupils equal, round, reactive to light and accommodation, conjunctiva clear *CARDIOVASCULAR no peripheral edema, distal temperature normal, dorsalis pedis pulses normal. see vitals Musculoskeletal: *GAIT AND STATION deferred by patient *ASSESSMENT OF MUSCLE STRENGTH IN THE UPPER AND LOWER EXTREMITIES right deltoid, bicep, tricep, legal aid strength, hip flexors ,anterior tibialis, dorsoflexion of the foot 4/5, left deltoid, bicep, tricep, legal aid strength, hip flexors, anterior tibialis, and dorsoflexion of the foot 5/5; strength is asymmetrical with L>R *MUSCLE TONE IN THE UPPER AND LOWER EXTREMITIES normal. No abnormal movements, fasciculations or atrophy identified. Neurological: *ORIENTATION to person, situation, time and place *RECURRENT AND REMOTE MEMORY intact *ATTENTION AND CONCENTRATION are normal *LANGUAGE FUNCTION no significant aphasia or dysarthia was noted. *FUND OF KNOWLEDGE aware of current events, past history, vocabulary *MENTAL attention span and concentration normal. *CN II optic fundi were normal, no papilledema noted. *CN III,IV, PERRLA extraocular eye movements were full, no nystagmus and no ptosis noted. *CN V B/L diminished sensation of the face *CN VII asymmetrical facial movement with decreased innervation of Rt mouth; has a h/o bells palsy rt face *CN VIII shows no significant hearing loss on exam *CN IX,,X palate elevated symmetrically *CN XI normal strength in the sternocleidomastoid muscles, symmetrical shoulder shrugging. *CN XII Rightward tongue deviation *SENSORY EXAMINATION abnormal sensory exam reporting right-sided sensory loss in the RUQ ED, RLE and right face and diminished left-sided sensation in the left face, LUE with sparing of the LLE *REFLEXES: deep tendon reflexes were normal and symmetrical in the bilateral triceps, biceps and brachioradialis, grade 4/4, left patellar 4/4 absent right patellar S/P knee surgery, no pathological reflexes were noted. *CEREBELLAR TESTING normal finger to nose, heel/knee/junior *PAIN LEVEL 5/10 right upper extremity and right lower extremity described as dull and constant Results - Laboratory Findings CBC and BMP: 03/14/19 00:10 03/14/19 00:10 Abnormal lab findings: Abnormal lab results WBC 12.2 K/mcL (4.3-11.1) H 03/13/19 16:43 RBC 5.07 M/mcL (3.82-4.97) H 03/13/19 16:43 MPV 9.1 fL (9.4-12.4) L 03/14/19 00:10 Sodium 133 mEq/L (136-145) L 03/14/19 00:10 Carbon Dioxide 20 mEq/L (23-29) L 03/14/19 00:10 27 (6-26) H 03/14/19 00:10 Glucose 328 mg/dL (70-105) H 03/14/19 00:10 POC Glucose 250 mg/dL (70-99) H 03/15/19 08:28 10.5 % (-5.6) H 03/14/19 00:10 33 mg/dL (40-59) L 03/14/19 00:10 Turbid (Clear) A 03/13/19 16:56 Ur Specific [place] 1.029 (1.010-1.025) H 03/13/19 16:56 100 mg/dL (Neg-Trace) H 03/13/19 16:56 >=1000 mg/dL (Normal) H 03/13/19 16:56 Trace mg/dL (Negative) H 03/13/19 16:56 Large (Negative) H 03/13/19 16:56 Ur Leukocyte Esterase Moderate (Negative) H 03/13/19 16:56 TNTC per hpf (0-3) H 03/13/19 16:56 Ur Squamous Epith Cells Many per lpf (None-Few) H 03/13/19 16:56 Many per hpf (None-Few) H 03/13/19 16:56 Ur Culture Indicated? YES (NO) A 03/13/19 16:56 Consult Discharge Plan - Plan Referrals: Eliz Mcgill MD [Primary Care Provider] -
[2019-03-15] MEDS: Gabapentin 300 MG CAPSULE PO SCH ×2 (14:59→20:46)
[2019-03-15] MEDS: MethylPREDNISolone 40 MG/ML VIAL IVP SCH ×2 (17:44→23:33)
[2019-03-15] MEDS ORDERED: Insulin DETEMIR 100 UNIT/ML X5UNITS SQ SCH (21:00)
[2019-03-16] MEDS: MethylPREDNISolone 40 MG/ML VIAL IVP SCH ×3 (06:19→17:13)
[2019-03-16] MEDS: Insulin LISPRO 300 UNITS/3 ML VIAL SQ SCH ×4 (08:18→22:27)
[2019-03-16] MEDS: Aspirin 81 MG TAB.CHEW PO SCH (08:19)
[2019-03-16] MEDS: Gabapentin 300 MG CAPSULE PO SCH ×3 (08:20→22:27)
[2019-03-16] MEDS: cefTRIAXone 1,000 MG in Water for inj. (sterile) 20 ML 10 ML IVP SCH (08:20)
[2019-03-16] MEDS: *HR* HYDROcodone/Acet 10/325 mg TABLET PO PRN ×2 (08:20→15:51)
[2019-03-16] MEDS: Insulin DETEMIR 100 UNIT/ML X5UNITS SQ SCH ×2 (08:21→22:27)
--- NOTE | 2019-03-16 11:53 | Internal Med Progress Note ---
Hospitalist Progress Note - Encounter Date of Encounter: 03/16/19 Time of Encounter: 09:00 - Subjective Interval History: She was seen and examined at bedside. All questions answered. Denies any new neurological deficits has had no incontinence of bowel or bladder. Reports that she tripped and fell while coming from the bathroom denies head trauma however she did land on her knees I discussed that the knee x-rays from yesterday are negative for any acute fractures. Currently awaiting placement for swing bed facility no overnight Events, pain is controlled. - Exam Vitals: Temp Pulse Resp BP Pulse Ox 97.8 F 54 14 130/80 96 03/16/19 10:25 03/16/19 10:25 03/16/19 10:25 03/16/19 10:25 03/16/19 10:25 Exam: General: Patient is alert, oriented, no acute distress, speeches comprehendible Head: atraumatic, normocephalic, Eye: normal appearance, PERRL, no scleral icterus, no conjunctival injection ENT: mucous membranes moist, normal external ear exam Neck: normal inspection, trachea midline, full ROM, no carotid bruits Chest: normal inspection, symmetric chest rise Respiratory: Good respiratory effort. Bilateral breath sounds are clear without wheezing, crackles, or rhonchi. Cardiovascular: Regular rate and rhythm. s1 and s2 No clicks, rubs, gallops, or murmors. Abdomen: Bowel sounds present normoactive x-4 quadrants. Abdomen is soft, nond istended. no Epigastric tenderness. No guarding or rebound. No organomegaly noted, obese musculoskeletal: Spontaneously moving all extremities. no edema, no calf tenderness Skin: warm, dry, intact. 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 She moving all extremities, strength is 5 out of 5 in all extremities. 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 Psych: Patient's affect is normal - Assessment and Plan (1) CVA (cerebral vascular accident) Current Visit: Yes Status: Acute Assessment and Plan: Acute subacute infarct identified involving the right thalamus. right-sided weakness and sensory deficits as well as falls ongoing for approximately [address] of head in the ED negative for acute intracranial abnormality showing chronic infarcts and chronic ischemic disease neurology on board ASA was changed to plavix as per neurology recs and lipitor MRI head Acute subacute infarct identified involving the right thalamus. carotid doppler Findings: Bilateral carotid system has nonstenotic plaque. TTE with bubble study - LVEF 60%. Mild concentric left ventricular hypertrophy. neurochecks as per protocol pt /OT on board for swing bed placement A1c 10.5, TSH pending started on losartan for BP control (2) Cervical spinal stenosis Current Visit: Yes Status: Acute Assessment and Plan: physical therapy on board continue pain management no mennigeal signs- ROM is intact in the neck was started on steroids on 03/15 and gabapentin discussed case with Dr. short who will see the patient. CT neck: No evidence of an acute cervical spine fracture. Straightening of the normal cervical lordosis may be secondary to degenerative change, positioning and/or muscle spasm. Degenerative disc disease with broad-based disc protrusions/herniations at C5-C6 and C6-C7. MR neck: IMPRESSION: Straightening of the cervical spine with multilevel degenerative disc disease and associated uncovertebral/facet hypertrophy resulting in canal stenosis at C5-6 and C6-7. Mild right foraminal narrowing at C2-3, moderate left and severe right foraminal narrowing at C3-4, mild to moderate right foraminal narrowing at C4-5, severe bilateral foraminal narrowing at C5-6, moderate to severe right and severe left foraminal narrowing at C6-7, as well as moderate right foraminal narrowing at C7-T1. (3) UTI (urinary tract infection) Current Visit: Yes Status: Acute Assessment and Plan: on ceftriaxone urine cx with pansensitive E.coli (4) GERD (gastroesophageal reflux disease) Current Visit: No Status: Chronic Assessment and Plan: continue PPI (5) Hypertension Current Visit: No Status: Chronic Assessment and Plan: was started on losartan for better BP control continue metorolol (6) T2DM (type 2 diabetes mellitus) Current Visit: No Status: Chronic Assessment and Plan: uncontrolled A1c is 10.5 increased long acting insulin 12 units BID along with sliding scale and will adjust as per finger sticks. (7) DVT prophylaxis Current Visit: Yes Status: Acute Assessment and Plan: heparin sc - Time Spent with Patient Total time spent is greater than 50% in coordination of care (as documented) at patient's floor/unit and/or counseling patient: Internal Medicine: Result - Labs CBC & Chem 7: 03/14/19 00:10 03/14/19 00:10 - ABG Interpretation ABG results: PT/INR, D-dimer PT 11.9 Seconds (9.4-12.1) 03/14/19 00:10 - Impressions Impressions Knee X-Ray 03/15/19 14:41 IMPRESSION: 1. The right knee demonstrates prior knee arthroplasty with normal alignment and no acute fracture. 2. Normal left knee alignment with no acute fracture. D/ / 03/15/2019 16:32:36 Mendel Wilkerson MD / johnson Interpreting Provider: Mendel Wilkerson MD Knee X-Ray 03/15/19 14:41 IMPRESSION: 1. The right knee demonstrates prior knee arthroplasty with normal alignment and no acute fracture. 2. Normal left knee alignment with no acute fracture. D/ : / 03/15/2019 16:32:36 Mendel Wilkerson MD / johnson Interpreting Provider: Mendel Wilkerson MD Consult Discharge Plan - Plan Referrals: Eliz Mcgill MD [Primary Care Provider] - (1) CVA (cerebral vascular accident) Qualifiers: CVA mechanism: unspecified Qualified Code(s): I63.9 - Cerebral infarction, unspecified (3) UTI (urinary tract infection) Qualifiers: Urinary tract infection type: acute cystitis Hematuria presence: without hematuria Qualified Code(s): N30.00 - Acute cystitis without hematuria (4) GERD (gastroesophageal reflux disease) Qualifiers: Esophagitis presence: esophagitis presence not specified Qualified Code(s): K21.9 - Gastro-esophageal reflux disease without esophagitis (5) Hypertension Qualifiers: Hypertension type: essential hypertension Qualified Code(s): I10 - Essential (primary) hypertension (6) T2DM (type 2 diabetes mellitus) Qualifiers: 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
[2019-03-16] MEDS ORDERED: Naloxone 0.4 MG/ML INJ IVP PRN (17:50)
[2019-03-16] MEDS ORDERED: *HR* HYDROcodone/Acet 5/325 mg TABLET PO PRN (17:50)
[2019-03-16] MEDS ORDERED: *HR* HYDROcodone/Acet 10/325 mg TABLET PO PRN (17:51)
[2019-03-17] MEDS: MethylPREDNISolone 40 MG/ML VIAL IVP SCH ×2 (00:32→06:33)
--- NOTE | 2019-03-17 08:01 | Spinal Consult Note ---
Date of Encounter: 03/17/19 Time of Encounter: 08:01 Assessment and Plan (1) Cervical radiculopathy Current Visit: Yes Status: Chronic On exam she is lying comfortably in bed in mild distress secondary to right upper extremity pain. Afebrile vital signs stable. She is neurovascularly intact with regard to her bilateral lower extremities. She has weakness in the right arm notably the triceps which is 4 on a motor scale. She has some weakness in right was flexion which is 4 on a motor scale as well. She has a negative Neelam sign. She has no clonus. Her hips move symmetrically. MRI of the cervical spine reveals multilevel degenerative changes and disc desiccation. There is some straightening of the normal cervical lordosis. There is foraminal stenosis which is severe and most notable at C5-6 and C6-7 worsened on the right. Impression: 1) recent CVA 2) foraminal stenosis cervical region 3) cervical radiculopathy 4) focal motor deficit Plan: Her picture is complicated by the recent cerebrovascular accident. She has findings including weakness or indications for surgical intervention, but I think she can be treated conservatively at this point. This would include interventional pain management consultation with Dr. Rodriguez for consideration of cervical epidural steroid injections on an outpatient basis. I will talk to Dr. Jordin Mack of neurology who believes an EMG of the right upper extremity would help elucidate extent of nerve injury. I suggest follow-up in Dr. Mack office for EMG on an outpatient basis as well. I will follow patient in my office in 6 weeks to evaluate efficacy of conservative treatment and to review results of electrodiagnostic studies. She may warrant cervical decompression at a later time. (2) Focal motor deficit Current Visit: Yes Status: Chronic History of Present Illness Chief complaint: Right arm pain, weakness HPI: Ms. Daniels is a 59 year old female with PMH of CVA, diabetes, GERD, hypertension, and RA on MTX. She i presented to the ER with the chief complaint of increasing pain in her neck and arm. She also has weakness in the right upper extremity. She has facial weakness as well. 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 She was admitted for definitive management and had neurologic workup and a cer ebrovascular accident was noted. We are asked to see secondary to the right arm radicular symptoms and weakness.. Past Med Surg Social Fam HX - Past Medical History Medical history: CVA, diabetes, GERD, hypertension, RA Additional medical history: HTN. History of CVA. GERD. DM. Urge incontinence Psychiatric history: anxiety, depression - Past Surgical History Surgical History: appendectomy, cholecystectomy, other Additional surgical history: TUBAL. back sx. right kidney removed - Social History Smoking Status: Former smoker Smokeless Tobacco Status: No Alcohol use: none Drug use: none - Family History Father Hx Family Cardiac Disorders: Yes Mother Hx Family Cardiac Disorders: Yes Medications and Allergies Alprazolam [Xanax] 1 mg PO HS 08/31/15 [History] Insulin DETEMIR [Levemir] 45 unit SQ HS 08/31/15 [History] Folic Acid 1 mg PO DAILY 10/03/16 [History] Insulin ASPART [NovoLOG] 15 - 25 unit SQ TIDWM 10/03/16 [History] Adalimumab [Humira] 40 mg SQ Q2W 03/14/19 [History] Atorvastatin [Lipitor] 40 mg PO DAILY 03/14/19 [History] Omeprazole [PriLOSEC] 40 mg PO DAILY 03/14/19 [History] hydrOXYzine HCl [Hydroxyzine HCl] 25 mg PO TID PRN 03/14/19 [History] Allergy/AdvReac Type Severity Reaction Status Date / Time tramadol Allergy Hypertensio Verified 10/03/16 09:22 n TAPE AdvReac BLISTERS Uncoded 08/31/15 11:00 Results - Labs Result Diagrams: 03/14/19 00:10 03/14/19 00:10 Labs: Abnormal lab results WBC 12.2 K/mcL (4.3-11.1) H 03/13/19 16:43 RBC 5.07 M/mcL (3.82-4.97) H 03/13/19 16:43 MPV 9.1 fL (9.4-12.4) L 03/14/19 00:10 Sodium 133 mEq/L (136-145) L 03/14/19 00:10 Carbon Dioxide 20 mEq/L (23-29) L 03/14/19 00:10 27 (6-26) H 03/14/19 00:10 Glucose 328 mg/dL (70-105) H 03/14/19 00:10 POC Glucose 474 mg/dL (70-99) H* 03/16/19 20:10 10.5 % (-5.6) H 03/14/19 00:10 33 mg/dL (40-59) L 03/14/19 00:10 Turbid (Clear) A 03/13/19 16:56 Ur Specific [place] 1.029 (1.010-1.025) H 03/13/19 16:56 100 mg/dL (Neg-Trace) H 03/13/19 16:56 >=1000 mg/dL (Normal) H 03/13/19 16:56 Trace mg/dL (Negative) H 03/13/19 16:56 Large (Negative) H 03/13/19 16:56 Ur Leukocyte Esterase Moderate (Negative) H 03/13/19 16:56 TNTC per hpf (0-3) H 03/13/19 16:56 Ur Squamous Epith Cells Many per lpf (None-Few) H 03/13/19 16:56 Many per hpf (None-Few) H 03/13/19 16:56 Ur Culture Indicated? YES (NO) A 03/13/19 16:56 All other labs normal. Consult Discharge Plan - Plan Referrals: Eliz Mcgill MD [Primary Care Provider] -
[2019-03-17] MEDS: Gabapentin 300 MG CAPSULE PO SCH (08:16)
[2019-03-17] MEDS: cefTRIAXone 1,000 MG in Water for inj. (sterile) 20 ML 10 ML IVP SCH (08:16)
[2019-03-17] MEDS: Insulin LISPRO 300 UNITS/3 ML VIAL SQ SCH ×2 (08:17→12:57)
[2019-03-17] MEDS: Insulin DETEMIR 100 UNIT/ML X5UNITS SQ SCH (08:17)
--- NOTE | 2019-03-17 11:09 | Neurology Progress Note ---
<Yaniv Woods J - Last Filed: 03/17/19 13:35> Date of Encounter: 03/17/19 Time of Encounter: 11:05 Assessment and Plan (1) Right sided weakness Status: Acute Clinically, she continues to have right arm and leg weakness and the neck and arm pain and parasthesias persists. The etiology of the parasthesias and weakness are due to cervical radiculopathy. MRI of the cervical spine revealed significant degenerative changes and multiple different levels of neural fora omar encroachment present in multiple levels bilaterally. In regards to surgery and do not feel there is an urgent need at this time and that she should be safe to undergo surgical intervention within the next month; defer to ortho team. With that being said she would likely benefit from pain management follow-up due to persistent right neck and arm pain. Additionally, we would continue a trial of IV steroids, tramadol and Neurontin in the short-term to see if this would provide some relief. She will need outpatient follow-up in the neurology clinic for an EMG evaluation of the right upper extremity. In regards to the acute thalamic infarct I discussed with the patient this morning risk factor management and she has been started on daily Plavix. Continue with statin therapy. Subjective Principal diagnosis: cervical radiculopathy Interval history: He was seen in follow-up for increasing pain in her right neck and arm as well as weakness in her right upper extremity and right lower extremity. Also, during this admission she was found to have a subacute infarct in the right thalamus. She was seen and examined at bedside today in denies any complaints of left sided deficits and reports that the speech deficits have resolved. In regards to the right sided weakness, she notes that it is persistent and reports that she is continuing to have right neck and arm pain. She is aware of the need for neurology f/u for EMG and the need for pain management consultation to assist with providing relief of neck and arm pain. Objective - Constitutional Vitals: Temp Pulse Resp BP Pulse Ox 97.6 F 63 15 157/83 92 03/17/19 10:15 03/17/19 10:15 03/17/19 10:15 03/17/19 10:15 03/17/19 10:15 Exam: Examination: General Examination: *CONSTITUTIONAL: Alert and oriented x3, no acute distress *GENERAL APPEARANCE OF PATIENT appears healthy and well groomed *EYES: pupils equal, round, reactive to light and accommodation, conjunctiva clear *CARDIOVASCULAR no peripheral edema, distal temperature normal, dorsalis pedis pulses normal. see vitals Musculoskeletal: *ASSESSMENT OF MUSCLE STRENGTH IN THE UPPER AND LOWER EXTREMITIES right deltoid, bicep, tricep, diesel mechanic farm strength, hip flexors ,anterior tibialis, dorsoflexion of the foot 4/5, left deltoid, bicep, tricep, diesel mechanic farm strength, hip flexors, anterior tibialis, and dorsoflexion of the foot 4/5; strength is asymmetrical with L>R *MUSCLE TONE IN THE UPPER AND LOWER EXTREMITIES normal. No abnormal mo vements, fasciculations or atrophy identified. Neurological: *ORIENTATION to person, situation, time and place *RECURRENT AND REMOTE MEMORY intact *ATTENTION AND CONCENTRATION are normal *LANGUAGE FUNCTION no significant aphasia or dysarthia was noted. *FUND OF KNOWLEDGE aware of current events, past history, vocabulary *MENTAL attention span and concentration normal. *CN II optic fundi were normal, no papilledema noted. *CN III,IV, PERRLA extraocular eye movements were full, no nystagmus and no ptosis noted. *CN V B/L diminished sensation of the face *CN VII asymmetrical facial movement with decreased innervation of Rt mo uth; has a h/o bells palsy rt face *CN VIII shows no significant hearing loss on exam *CN IX,,X palate elevated symmetrically *CN XI normal strength in the sternocleidomastoid muscles, symmetrical shoulder shrugging. *CN XII Rightward tongue deviation *SENSORY EXAMINATION abnormal sensory exam reporting right-sided sensory loss in the RUQ, RLE and right face and diminished left-sided sensation in the left face, LUE with sparing of the LLE *REFLEXES: deep tendon reflexes were normal and symmetrical in the bilateral triceps, biceps and brachioradialis, grade 4/4, left patellar 4/4 absent right patellar S/P knee surgery, no pathological reflexes were noted. *CEREBELLAR TESTING normal finger to nose b/l *PAIN LEVEL 4/10 right neck and right arm Results - Laboratory Findings CBC and BMP: 03/14/19 00:10 03/14/19 00:10 Abnormal lab findings: Abnormal lab results WBC 12.2 K/mcL (4.3-11.1) H 03/13/19 16:43 RBC 5.07 M/mcL (3.82-4.97) H 03/13/19 16:43 MPV 9.1 fL (9.4-12.4) L 03/14/19 00:10 Sodium 133 mEq/L (136-145) L 03/14/19 00:10 Carbon Dioxide 20 mEq/L (23-29) L 03/14/19 00:10 27 (6-26) H 03/14/19 00:10 Glucose 328 mg/dL (70-105) H 03/14/19 00:10 POC Glucose 474 mg/dL (70-99) H* 03/16/19 20:10 10.5 % (-5.6) H 03/14/19 00:10 33 mg/dL (40-59) L 03/14/19 00:10 Turbid (Clear) A 03/13/19 16:56 Ur Specific [place] 1.029 (1.010-1.025) H 03/13/19 16:56 100 mg/dL (Neg-Trace) H 03/13/19 16:56 >=1000 mg/dL (Normal) H 03/13/19 16:56 Trace mg/dL (Negative) H 03/13/19 16:56 Large (Negative) H 03/13/19 16:56 Ur Leukocyte Esterase Moderate (Negative) H 03/13/19 16:56 TNTC per hpf (0-3) H 03/13/19 16:56 Ur Squamous Epith Cells Many per lpf (None-Few) H 03/13/19 16:56 Many per hpf (None-Few) H 03/13/19 16:56 Ur Culture Indicated? YES (NO) A 03/13/19 16:56 Consult Discharge Plan - Plan Instructions: Transient Ischemic Attack (GEN), Self Care Measures After a Stroke (GEN), Cervical Radiculopathy (GEN), Weakness (GEN) Referrals: Carlton Herrera Jr, MD [Partnered Physician] - 04/24/19 10:15 am Jordin Mack DO [Partnered Physician] - 03/25/19 8:15 am Eliz Mcgill MD [Primary Care Provider] - 03/20/19 1:30 pm Prescriptions: Blood Pressure Test Kit-Wrist [Blood Pressure Kit] 1 each MC BID #1 kit Losartan [Cozaar] 50 mg PO DAILY 30 Days #60 tablet Atorvastatin [Lipitor] 80 mg PO HS #60 tablet Gabapentin [Neurontin] 300 mg PO TID 30 Days #90 capsule HYDROcodone/Acet 5/325 mg [[place] 5-325 mg] 1 tab PO Q6HR PRN 1 Days #4 tablet PRN Reason: Moderate Pain Cefdinir [Omnicef] 300 mg PO BID #4 capsule Clopidogrel [Plavix] 75 mg PO DAILY #30 tablet Pantoprazole Sodium [Protonix] 40 mg PO DAILY #30 tablet.Jordin Lim E - Last Filed: 03/17/19 16:34> Date of Encounter: 03/17/19 Assessment and Plan (1) Right sided weakness Status: Acute I have personally performed a [id number] assessment of the patient and have reviewed the PA/SOFTWARE TEST SPECIALIST note. My impressions are as follows: I agree with the [facility] his assessment as stated above. I also discussed the case with Dr. Herrera. Patient would benefit from having an EMG of the right upper extremity. Also Dr. Herrera would prefer to wait prior to doing the ACDF. I feel it is reasonable to perhaps wait another few weeks or so. The infarct was small involving the right thalamus. I also agree with recommendations of trying to control her right arm pain with IV steroids, Gabapentin and Tramadol. I Will Follow-Up with Her My Office to Complete the EMG. I Would Recommend Considering the ACDF If EMG Supports Right Cervical Radiculopathy. Otherwise May Be Is Discharged from the Hospital. Subjective Interval history: Chart was reviewed, patient was seen and examined independently. Case was discussed with Dr. Herrera as well as with the [facility]. I agree with Mike's assessment of the history of present illness as stated above. Objective - Constitutional Vitals: Temp Pulse Resp BP Pulse Ox 98.4 F 59 15 150/76 96 03/17/19 14:18 03/17/19 14:18 03/17/19 14:18 03/17/19 14:18 03/17/19 14:18 Exam: I have personally performed a [id number] assessment of the patient and have reviewed the PA/SOFTWARE TEST SPECIALIST note. My impressions are as follows: I agree with Mike's neurologic examination as stated above. Results - Laboratory Findings CBC and BMP: 03/14/19 00:10 03/14/19 00:10 Abnormal lab findings: Abnormal lab results WBC 12.2 K/mcL (4.3-11.1) H 03/13/19 16:43 RBC 5.07 M/mcL (3.82-4.97) H 03/13/19 16:43 MPV 9.1 fL (9.4-12.4) L 03/14/19 00:10 Sodium 133 mEq/L (136-145) L 03/14/19 00:10 Carbon Dioxide 20 mEq/L (23-29) L 03/14/19 00:10 27 (6-26) H 03/14/19 00:10 Glucose 328 mg/dL (70-105) H 03/14/19 00:10 POC Glucose 474 mg/dL (70-99) H* 03/16/19 20:10 10.5 % (-5.6) H 03/14/19 00:10 33 mg/dL (40-59) L 03/14/19 00:10 Turbid (Clear) A 03/13/19 16:56 Ur Specific [place] 1.029 (1.010-1.025) H 03/13/19 16:56 100 mg/dL (Neg-Trace) H 03/13/19 16:56 >=1000 mg/dL (Normal) H 03/13/19 16:56 Trace mg/dL (Negative) H 03/13/19 16:56 Large (Negative) H 03/13/19 16:56 Ur Leukocyte Esterase Moderate (Negative) H 03/13/19 16:56 TNTC per hpf (0-3) H 03/13/19 16:56 Ur Squamous Epith Cells Many per lpf (None-Few) H 03/13/19 16:56 Many per hpf (None-Few) H 03/13/19 16:56 Ur Culture Indicated? YES (NO) A 03/13/19 16:56
[2019-03-17 14:20] VITALS: BP 150/76
--- NOTE | 2019-03-17 14:23 | Discharge Summary ---
- NOTES TO OUTPATIENT PROVIDER Notes to Outpatient Provider: follow up with neurology as OP. follow up with pain management as op- renee will contatc you for appointment for cervical spine injections. follow A1c levels as OP Date of Encounter: 03/17/19 Time of Encounter: 14:14 - Discharge Diagnosis (1) CVA (cerebral vascular accident) Priority: Primary Status: Acute Qualifiers: CVA mechanism: unspecified Qualified Code(s): I63.9 - Cerebral infarction, unspecified (2) Cervical spinal stenosis Priority: Secondary Status: Acute (3) UTI (urinary tract infection) Priority: Secondary Status: Acute Qualifiers: Urinary tract infection type: acute cystitis Hematuria presence: without hematuria Qualified Code(s): N30.00 - Acute cystitis without hematuria (4) GERD (gastroesophageal reflux disease) Priority: Secondary Status: Chronic Qualifiers: Esophagitis presence: esophagitis presence not specified Qualified Code(s): K21.9 - Gastro-esophageal reflux disease without esophagitis (5) Hypertension Priority: Secondary Status: Chronic Qualifiers: Hypertension type: essential hypertension Qualified Code(s): I10 - Essential (primary) hypertension (6) T2DM (type 2 diabetes mellitus) Priority: Secondary Status: Chronic Qualifiers: Diabetes mellitus fpc insulin use: without fpc use Diabetes mellitus complication status: without complication Qualified Code(s): E11.9 - Type 2 diabetes mellitus without complications (7) DVT prophylaxis Priority: Secondary Status: Acute Hospital course: "Ms. Daniels is a 59 year old female with PMH of CVA, diabetes, GERD, hypertension, and RA on MTX. She is presenting to the ER with the chief complaint of increasing pain in her neck and arm. She also has weakness and although it is chronic, she has acutely worsened symptoms. She has facial weakness as well. 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 She denies right LE weakness. She states noticed her face was droopy and speech slurred. She did also report falling today and hitting her head, states that she had no LOC. She is unsure what precipitated her fall and she states that she just all of a sudden fell forward. Denies any chest pain or palpiltations previously. Denies pre-syncopal symptoms. She also c/o dysuria x 1 week in duration. She denies hematuria. Does have some increase in frequency. She was found to have evidence of UTI on UA in the ER. CT head showed chronic ischemic changes, low lying cerebellar tonsils without acute bleed. She will be admitted for further evaluation. " patient was admitted with above presentation and had above ED course. CT of head in the ED negative for acute intracranial abnormality showing chronic infarcts and chronic ischemic disease. carotid doppler Findings: Bilateral carotid system has nonstenotic plaque.TTE with bubble study - LVEF 60%. Mild concentric left ventricular hypertrophy. A1c 10.5%. neurology was consulted and MRI brain performed which showed Acute subacute infarct identified involving the right thalamus. ASA was changed to plavix and lipitor dose was increased. MRI neck was performed which showed There is foraminal stenosis which is severe and most notable at C5-6 and C6-7 worsened on the right- full report below. neurology initiated gabapentin and steroids. spine surgery was consulted and recommended "Her picture is complicated by the recent cerebrovascular accident. She has findings including weakness or indications for surgical intervention, but I think she can be treated conservatively at this point. This would include interventional pain management consultation with Dr. Rodriguez for consideration of cervical epidural steroid injections on an outpatient basis. I will talk to Dr. Jordin Mack of neurology who believes an EMG of the right upper extremity would help elucidate extent of nerve injury. I suggest follow-up in Dr. Mcak office for EMG on an outpatient basis as well. I will follow patient in my office in 6 weeks to evaluate efficacy of conservative treatment and to review results of electrodiagnostic studies. She may warrant cervical decompression at a later time." pain was controlled with pain medication. i discussed with Dr. cowart with pain management and he will call patient and schedule her as OP for cervical spine injection. he recommended to stop steroids and continue with gabapentin and to have dose increased as tolerated based on symptoms. for pcp to continue to adjust neurontin dosage. for her to follow with neurology to have EMG report. she understands to come to the ED if she develops any weakness, numbness, tingling, incontinence or stroke like symptoms. she was cleeared for discharge by neurology. she is to follow up with spine surgery for possible surgical intervention. she did have an episode of a mechanical fall while hospitalized without loss of consciousness, no head trauma. knee xrays perfomed and without acute abnormalities. nursing staff aware to provide patient with appointment. she was found to have booth sensitive E.coli UTI and she was started on IV abx and transitioned to PO to complete a 5 day course. Pt/OT initially recommended swing bed however she continued to improved and recommendations were changed to home with PT and nursing. SW and CM on board and referral was made. she was counseled on importance of compliance to insulin regimen. she is too keep log and have PCP adjust medications as per finger sticks. glucose was elevated on hospitalization secondary to stroke. initially it was though as though she was on metoprolol however as per doctor of pharmacy and she was not taking that medication nor was she prescribed. BP was elevated, she was started on losartan for BP control to take log of BP and for PCP to adjust dosage as per BP log nursing staff aware to provide appointment with PCP, neurology and spine surgery cervical spine MRI:MPRESSION: Straightening of the cervical spine with multilevel degenerative disc disease and associated uncovertebral/facet hypertrophy resulting in canal stenosis at C5-6 and C6-7. Mild right foraminal narrowing at C2-3, moderate left and severe right foraminal narrowing at C3-4, mild to moderate right foraminal narrowing at C4-5, severe bilateral foraminal narrowing at C5-6, moderate to severe right and severe left foraminal narrowing at C6-7, as well as moderate right foraminal narrowing at C7-T1. CXR:IMPRESSION: No evidence of acute cardiopulmonary disease. TTE:Impressions: LVEF 60%. Mild concentric left ventricular hypertrophy. Normal LV chamber size, wall thickness and function. Mild left ventricular diastolic dysfunction. Normal right ventricular structure and function. Interatrial septum not well evaluated. Agitated saline given, but never visualized in the heart. Unable to estimate RVSP due to lack of TR jet. brain MRI:IMPRESSION: Acute subacute infarct identified involving the right thalamus. Additional chronic lacune infarcts identified involving both basal ganglia regions. Dvpb-jn-[id number] chronic small vessel ischemic disease. knee xray:IMPRESSION: 1. The right knee demonstrates prior knee arthroplasty with normal alignment and no acute fracture. 2. Normal left knee alignment with no acute fracture. carotid doppler: Findings: Bilateral carotid system has nonstenotic plaque. Discharge discussed with: patient, nurse, social work, case management, financial planning consultant Time spent discussing smoking cessation with patient: more than 10 minutes - Time Spent with Patient Total time spent providing and/or coordinating discharge services: Time spent: Greater than 30 minutes (35) - Discharge Medications Prescriptions: New Losartan [Cozaar] 50 mg PO DAILY 30 Days #60 tablet Atorvastatin [Lipitor] 80 mg PO HS #60 tablet Gabapentin [Neurontin] 300 mg PO TID 30 Days #90 capsule HYDROcodone/Acet 5/325 mg [[place] 5-325 mg] 1 tab PO Q6HR PRN 1 Days #4 tablet PRN Reason: Moderate Pain Cefdinir [Omnicef] 300 mg PO BID #4 capsule Clopidogrel [Plavix] 75 mg PO DAILY #30 tablet Pantoprazole Sodium [Protonix] 40 mg PO DAILY #30 tablet. Blood Pressure Test Kit-Wrist [Blood Pressure Kit] 1 each MC BID #1 kit Continued Alprazolam [Xanax] 1 mg PO HS Insulin DETEMIR [Levemir] 45 unit SQ HS Insulin ASPART [NovoLOG] 15 - 25 unit SQ TIDWM Folic Acid 1 mg PO DAILY hydrOXYzine HCl [Hydroxyzine HCl] 25 mg PO TID PRN PRN Reason: Itching Adalimumab [Humira] 40 mg SQ Q2W Discontinued Omeprazole [PriLOSEC] 40 mg PO DAILY Atorvastatin [Lipitor] 40 mg PO DAILY Home Medications: Alprazolam [Xanax] 1 mg PO HS 08/31/15 [History] Insulin DETEMIR [Levemir] 45 unit SQ HS 08/31/15 [History] Folic Acid 1 mg PO DAILY 10/03/16 [History] Insulin ASPART [NovoLOG] 15 - 25 unit SQ TIDWM 10/03/16 [History] Adalimumab [Humira] 40 mg SQ Q2W 03/14/19 [History] hydrOXYzine HCl [Hydroxyzine HCl] 25 mg PO TID PRN 03/14/19 [History] Atorvastatin [Lipitor] 80 mg PO HS #60 tablet 03/17/19 [Rx] Blood Pressure Test Kit-Wrist [Blood Pressure Kit] 1 each MC BID #1 kit 03/17/19 [Rx] Cefdinir [Omnicef] 300 mg PO BID #4 capsule 03/17/19 [Rx] Clopidogrel [Plavix] 75 mg PO DAILY #30 tablet 03/17/19 [Rx] Gabapentin [Neurontin] 300 mg PO TID 30 Days #90 capsule 03/17/19 [Rx] HYDROcodone/Acet 5/325 mg [[place] 5-325 mg] 1 tab PO Q6HR PRN 1 Days #4 tablet 03/17/19 [Rx] Losartan [Cozaar] 50 mg PO DAILY 30 Days #60 tablet 03/17/19 [Rx] Pantoprazole Sodium [Protonix] 40 mg PO DAILY #30 tablet. 03/17/19 [Rx] Allergies/Adverse Reactions: Allergy/AdvReac Type Severity Reaction Status Date / Time tramadol Allergy Hypertensio Verified 10/03/16 09:22 n TAPE AdvReac BLISTERS Uncoded 08/31/15 11:00 Date of admission: 03/15/19 17:50 Primary care physician: Eliz Mcgill MD Consults: 03/13/19 23:16 Consult to Neurology [CONS] Routine Consulting Provider: Neurology [facility] Reason for Consult: r/o stroke, hx of bells palsy Call Completed: No 03/13/19 23:18 Consult to Occupational Therapy [CONS] Routine Comment: Evaluate, develop and implement POC Reason for Consult: weakness,falls Does patient have active BEDREST order?: No Is patient medically & hemodynamically stable?: Yes Patient assessed for mobility or mobilized this visit?: No Consult to Physical Therapy [CONS] Routine Comment: Evaluate, develop and implement POC Reason for Consult: weakness,falls Does patient have active BEDREST order?: No Is patient medically & hemodynamically stable?: Yes Patient assessed for mobility or mobilized this visit?: No 03/14/19 11:28 Consult to Invasive Line Access Team [CONS] Routine Reason for Consult: IV abx, cardiac testing Line Type: EPIV 03/16/19 11:49 Consult to Physician [CONS] Routine Consulting Provider: Carlton Herrera Jr Reason for Consult: Cervical spine stenosis Call Completed: Yes - Constitutional Vitals: Temp Pulse Resp BP Pulse Ox 97.6 F 63 15 157/83 92 03/17/19 10:15 03/17/19 10:15 03/17/19 10:15 03/17/19 10:15 03/17/19 10:15 Exam: General: Patient is alert, oriented, no acute distress, speeches comprehendible Head: atraumatic, normocephalic, Eye: normal appearance, PERRL, no scleral icterus, no conjunctival injection ENT: mucous membranes moist, normal external ear exam Neck: normal inspection, trachea midline, full ROM, no carotid bruits Chest: normal inspection, symmetric chest rise Respiratory: Good respiratory effort. Bilateral breath sounds are clear without wheezing, crackles, or rhonchi. Cardiovascular: Regular rate and rhythm. s1 and s2 No clicks, rubs, gallops, or murmors. Abdomen: Bowel sounds present normoactive x-4 quadrants. Abdomen is soft, nondistended. no Epigastric tenderness. No guarding or rebound. No organomegaly noted, obese musculoskeletal: Spontaneously moving all extremities. no edema, no calf tende rness Skin: warm, dry, intact. 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 She moving all extremities, strength is 5 out of 5 in all extremities. Bkeace-yu-ekox intact pronator drift is negative cranial nerves II through XII is intact except cranial nerve VII from Mejia's palsy. Psych: Patient's affect is normal - Patient Status Disposition: Home Health Service Condition: Fair Functional capacity at discharge: uses cane/walker Overall status at discharge: patient is progressing back to baseline - Discharge Instructions Follow Up With: Carlton Herrera Jr, MD [Partnered Physician] - 04/24/19 10:15 am Jordin Mack DO [Partnered Physician] - 03/25/19 8:15 am Eliz Mcgill MD [Primary Care Provider] - 03/20/19 1:30 pm - Diet and Activity Activity: as per physical therapy Diet: diabetic diet, low salt diet
--- NOTE | 2019-03-17 14:40 | Physician Discharge Referral ---
Home Health/Hosp Referral Info Transfer to: Home Health Provider in Charge Post Discharge: PCP - Diagnosis (1) CVA (cerebral vascular accident) Status: Acute (2) Cervical spinal stenosis Status: Acute (3) UTI (urinary tract infection) Status: Acute (4) GERD (gastroesophageal reflux disease) Status: Chronic (5) Hypertension Status: Chronic (6) T2DM (type 2 diabetes mellitus) Status: Chronic (7) DVT prophylaxis Status: Acute - Respiratory Orders Smoking Cessation: Smoking cessation has been advised. For more information, call the [place] Tobacco Quit Line at 6-057-PIAO-NOW. - Diet/Nutrition Diet/Nutrition Orders: Cardiac (diabetic) - Services Needed Following services are medically necessary services: Nursing, Home Health Aide, Physical Therapy - Transfer Medications Prescriptions: Losartan [Cozaar] 50 mg PO DAILY 30 Days #60 tablet Atorvastatin [Lipitor] 80 mg PO HS #60 tablet Gabapentin [Neurontin] 300 mg PO TID 30 Days #90 capsule HYDROcodone/Acet 5/325 mg [[place] 5-325 mg] 1 tab PO Q6HR PRN 1 Days #4 tablet PRN Reason: Moderate Pain Cefdinir [Omnicef] 300 mg PO BID #4 capsule Clopidogrel [Plavix] 75 mg PO DAILY #30 tablet Pantoprazole Sodium [Protonix] 40 mg PO DAILY #30 tablet.dr Home Medications: Alprazolam [Xanax] 1 mg PO HS 08/31/15 [History] Insulin DETEMIR [Levemir] 45 unit SQ HS 08/31/15 [History] Folic Acid 1 mg PO DAILY 10/03/16 [History] Insulin ASPART [NovoLOG] 15 - 25 unit SQ TIDWM 10/03/16 [History] Adalimumab [Humira] 40 mg SQ Q2W 03/14/19 [History] hydrOXYzine HCl [Hydroxyzine HCl] 25 mg PO TID PRN 03/14/19 [History] Atorvastatin [Lipitor] 80 mg PO HS #60 tablet 03/17/19 [Rx] Cefdinir [Omnicef] 300 mg PO BID #4 capsule 03/17/19 [Rx] Clopidogrel [Plavix] 75 mg PO DAILY #30 tablet 03/17/19 [Rx] Gabapentin [Neurontin] 300 mg PO TID 30 Days #90 capsule 03/17/19 [Rx] HYDROcodone/Acet 5/325 mg [[place] 5-325 mg] 1 tab PO Q6HR PRN 1 Days #4 tablet 03/17/19 [Rx] Losartan [Cozaar] 50 mg PO DAILY 30 Days #60 tablet 03/17/19 [Rx] Pantoprazole Sodium [Protonix] 40 mg PO DAILY #30 tablet. 03/17/19 [Rx] Allergies/Adverse Reactions: Allergy/AdvReac Type Severity Reaction Status Date / Time tramadol Allergy Hypertensio Verified 10/03/16 09:22 n TAPE AdvReac BLISTERS Uncoded 08/31/15 11:00 Certification: Further, I certify that my clinical findings support that this patient is homebound (i.e. absences from home require considerable and taxing effort and are for medical reasons or [employer] services or infrequently or short duration when for other reasons) because: Homebound Reason: Patient requires assistance of a person or device to safely leave home Attestation: My signature below is to certify that this patient is under my care and that I, or nurse practitioner, or a physician's video library assistant working with me, has a [id number] encounter with this patient.
== END 2019-03-17 16:28 | disposition home health service (06) | DRG 45 ==
LOC: 3BNU 15:23 → EMEROOARM 15:23 → 3ANU 20:35
PROVIDERS: ADMIT Internal Medicine; ATTEND Internal Medicine

== ENCOUNTER 2019-04-09 06:12 | Inpatient (IN) ==
[2019-04-09] MEDS ORDERED: Ringers Solution, Lactated 1,000 ML IVC SCH ×2 (06:45→12:15)
[2019-04-09] MEDS ORDERED: Famotidine 20 MG/2 ML VIAL IVP ONE (07:06)
[2019-04-09] MEDS ORDERED: *HR* Methadone 10 MG TABLET PO ONE (07:06)
[2019-04-09] MEDS ORDERED: Pregabalin 75 MG CAPSULE PO ONE (07:06)
[2019-04-09] MEDS ORDERED: Acetaminophen IV 1,000 MG/100 ML INFUS..BTL IVPB ONE (07:07)
--- NOTE | 2019-04-09 07:22 | History & Physical Report ---
Date of Encounter: 04/09/19 Time of Encounter: 07:22 24 Hour HP Update - Instructions Instructions: If the History and Physical is less than 30 days old and was completed prior to A.M. admission and or procedure and has NOT been updated on calendar day of procedure please complete this update prior to performing procedure. - Update Patient reports changes in Medical Condition: No Changes in examination, assessment, or condition: No Changes in Medication: No Preop tests/diagnostics Reviewed: Yes Pre-Op MRSA Screen: Negative Surgery Remains Indicated: Yes Consent for Planned Operative Procedure(s) Verified: Yes - Pre-Operative Checklist Preoperative Checklist Indicated: No Prophylactic Antibiotic Ordered: Yes Home Medications Include Beta Tobias: No Beta Tobias Taken Today (Day of Surgery): No Beta Tobias Taken Yesterday (Day Prior to Surgery): No Is VTE Prophylaxis Indicated?: Yes
[2019-04-09] MEDS ORDERED: Heparin 1,000 UNITS/500 mL 500 ML ONE (07:26)
[2019-04-09] MEDS ORDERED: Propofol 500 MG/50 ML INFUS..BTL ONE ×5 (07:34→10:04)
--- NOTE | 2019-04-09 07:34 | Anesthesia Evaluation PreOp ---
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: CVA (2016 no residual deficit), Other (Cervical Stenosis) Other Medical History: Diabetes Type II Anesthesia History: No Prior Anesthetic Complications : No Alcohol Use: none Drug use: none Medications and Allergies Adalimumab [Humira] 40 mg SQ Q2W 03/14/19 [History] hydrOXYzine HCl [Hydroxyzine HCl] 25 mg PO BID PRN 03/14/19 [History] ALPRAZolam [Xanax 1 MG Tablet] 1 mg PO BID PRN 04/09/19 [History] Aspirin [Lo-Dose Aspirin EC] 81 mg PO DAILY 04/09/19 [History] Calcipotriene [Dovonex] 1 appl TP BID 04/09/19 [History] Insulin DETEMIR [Levemir Flextouch] 25 units SQ QPM PRN 04/09/19 [History] Oxycodone HCl/Acetaminophen [Percocet 10-325 mg Tablet] 1 tab PO Q4H PRN 04/09/19 [History] cloNIDine HCl [Clonidine HCl] 0.2 mg PO BID 04/09/19 [History] Allergy/AdvReac Type Severity Reaction Status Date / Time tramadol Allergy Hypertension, Verified 04/01/19 09:40 Passes out TAPE AdvReac BLISTERS Uncoded 08/31/15 11:00 - Meds/Allergy Pre-op Review Medications Reviewed: Yes Allergies Reviewed: Yes Beta Blockers on Current Med List: No Anesthesia Results - Labs Laboratory Tests 03/18/19 03/19/19 03/19/19 23:52 10:46 10:46 Hgb 13.7 Hct 41.2 Plt Count 249 PT 11.9 INR 1.1 APTT 27.0 Sodium 135 L Potassium 3.4 L BUN 19 Creatinine 0.68 - Imaging EKG: report reviewed (SR) Additional studies: ECHO EF 60%., no valvular dysfunction Anesthesia Exam O2 Sat Height 1.6 m Height 1.6 m Height 1.61 m Weight 77.564 kg Weight 77.564 kg Weight 77.564 kg O2 Sat by Pulse Oximetry 98 Vital Signs Temp Pulse Resp BP Pulse Ox 97.8 F 70 18 146/88 98 04/09/19 07:32 04/09/19 07:32 04/09/19 07:32 04/09/19 07:32 04/09/19 07:32 Height: 5'3 Weight: 171 lbs NPO (# of Hours): MN Pain Scale: 0 - HEENT Pupil (Motor): Pupils equal, EOMI Mallampati: II Denture Type: Upper: Complete Oral Opening: Greater than 3 - 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
[2019-04-09] MEDS ORDERED: *HR* Propofol 200 MG/20 ML VIAL IVP ONE (07:35)
[2019-04-09] MEDS ORDERED: *HR* FentaNYL (PF) 100 MCG/2 ML VIAL ONE (07:35)
[2019-04-09] MEDS ORDERED: *HR* Midazolam HCl 2 MG/2 ML VIAL ONE (07:35)
[2019-04-09] MEDS ORDERED: *HR* Remifentanil 1 MG VIAL IVP ONE (07:35)
[2019-04-09] MEDS ORDERED: *HR* Phenylephrine 10 MG/ML VIAL ONE (07:37)
[2019-04-09] MEDS ORDERED: *HR* Succinylcholine 200 MG/10 ML VIAL IVP ONE (07:37)
[2019-04-09] MEDS ORDERED: Lidocaine -MPF 2% 2 ML VIAL ONE (07:37)
[2019-04-09] MEDS ORDERED: Ondansetron 4 MG/2 ML VIAL ONE (07:37)
[2019-04-09] MEDS ORDERED: Dexamethasone 4 MG/ML VIAL ONE (07:37)
[2019-04-09] MEDS ORDERED: Bacitracin 50,000 UNIT, Polymyxin B Sulfate 500,000 UNIT, Sodium Chloride IRRigation 1,... IR ONE (07:45)
[2019-04-09] MEDS ORDERED: *HR* Labetalol 20 MG/4 ML SYRINGE IVP PRN (08:20)
[2019-04-09] MEDS ORDERED: *HR* OxyCODONE Immed Rel 5 MG TABLET PO PRN (08:20)
[2019-04-09] MEDS ORDERED: *HR* HYDROmorphone (PF) 1 MG/ML SYRINGE IVP PRN (08:20)
[2019-04-09] MEDS ORDERED: Ondansetron 4 MG/2 ML VIAL IVP ONE (08:20)
[2019-04-09] MEDS ORDERED: EPHEDrine 50 MG/ML VIAL ONE (08:25)
--- NOTE | 2019-04-09 09:38 | Anesthesia Procedures ---
Date of Encounter: 04/09/19 Time of Encounter: 07:30 Procedures: Anesthesia - Arterial Line Consent obtained: written consent Time out performed: Yes Sedation: Versed (mg): 2 Sedation: Fentanyl (mcg): 100 Size (Gauge): 20 Length (inches): 1 3/4 Technique Used: sterile prep, guide wire technique, direct puncture technique Post-Procedure: line taped into place Patient tolerated procedure: no complications Complications: none Site: Radial L Vitals: Vital Signs/O2 Sat/Glucose, Most Current Temp Pulse Resp BP Pulse Ox 04/09/19 07:32 97.8 F 70 18 146/88 98
[2019-04-09] MEDS ORDERED: Propofol 3,000 MG/300 ML INFUS..BTL IVC ONE (10:07)
[2019-04-09] MEDS ORDERED: *HR* HYDROMORPHONE 2 MG/ML VIAL ONE (10:51)
--- NOTE | 2019-04-09 11:04 | Orthopedic Operative Note ---
Date of procedure: 04/09/19 Pre-op diagnosis: Cervical stenosis, cervical radiculopathy, focal motor deficit Post-op diagnosis: same Operation/Findings: Anterior cervical decompression and fusion C4-C7: The patient was brought to the operating room and placed supine on the operating room table. Successful general endotracheal anesthesia intubation was performed. Neurophysiologic monitoring personnel placed leads on the upper and lower extremities as well as the cranium for EMG monitoring purposes. Appropriate baseline potentials were noted by the neurophysiologic monitoring staff. Brown catheter was placed prior to positioning. Compression boots and stockings were placed for deep vein thrombosis prophylaxis. Padding was also placed all bony prominences including the ulnar nerve near the medial epicondyles of the elbows were appropriately padded. Mild traction was placed on the bilateral shoulders and taped into place. Preoperative antibiotics were administered. The area from the mandible bilaterally to the upper thoraces was prepped and draped in the usual sterile fashion. An oblique incision was made at the level of the cricoid cartilage which is approximately 3 cm in length and extended from the midline of the cervical spine laterally towards the sternocleidomastoid muscle on the left. We then performed standard medial approach to the carotid sheath. Sponges were used to tease the fascial medial to the sternocleidomastoid muscle while carefully controlling and palpating the carotid artery. Using careful dissection we were able to get to the level of the anterior vertebral bodies and longus coli muscles. The spinal needle was placed at the appropriate C6-7 level, and intraoperative radiograph was obtained which was a cervical spine lateral radiograph. The needle and radiograph confirmed we were at the correct C6-7 operative level. We further exposed this level by using Bovie cautery under the medial edge of the longus colli muscles to allow them to be retracted approximately 2 mm laterally on each side. An 11 blade was used to perform anterior discectomy at the appropriate C6-7 level after an initial annulotomy of the anterior longitudinal ligament and annulus was performed. Further disc material was removed with pituitary Rongeurs. Subsequently, Synthes pins were placed at the C6 and C7 vertebral bodies respectively to provide distraction. We then used a Trimline cervical retractor which was placed in both medial and lateral as well as inferior superior direction to allow full visualization of the appropriate C6-7 disc and C6 and C7 vertebral bodies. The Leica microscope was brought to the field and the remainder of the procedure was performed under the guidance of this microscope. Using pituitary rongeurs and small curettes, various micro-instruments, a full discectomy was performed at the appropriate C6-C7 level. The posterior longitudinal ligament was encountered and appeared partially calcified. A portion of this ligament was removed. After complete and thorough discectomy and removal of spondylitic material was performed the endplates of the C6 and C7 vertebral bodies were prepared with a bur until allow bleeding of cancellous bone. A 7mm trial graft was evaluated and appeared to fit quite well within the excised C6-7 disc space. A cortico-cancellous allograft of 7 mm was utilized, carefully tapped into place within the excised disc space with the aid of a bone tamp. It was seated approximately 2 mm from the anterior edge of the cortex of the adjacent vertebral bodies. We then turned our attention to the C5-6 level where a similar series of procedures was performed including discectomy, removal of spondylitic material, end plate preparation, and trial grafting. A 7mm trial fit well within the C5-6 disc space. A 7 mm allograft was then placed at C5-6. We then turned our attention to the C4-5 level where a similar decompression and endplate preparation was performed. After the decompression we trialed a 7 mm allograft and it fit well within the C4-5 disc space. A 7 mm allograft was then subsequently placed at C4-5. A cervical plate was then placed on the anterior aspect of the C4, C5, C6, and C7 vertebral bodies. The plate was placed in the midline position after drilling eight 13 mm self tapping screws and inserting them. They were locked in place using standard Venture plate maneuvers. At this point a lateral radiograph of the cervical spine was obtained and showed satisfactory position of the graft and plate. The wound was copiously irrigated and bleeders encountered were cauterized using Bovie cautery. Platysma was closed with interrupted 2-0 Vicryl sutures. Running 3-0 Monocryl suture was used for skin closure. Sterile dressing was placed over the neck wound. A cervical collar was placed. The patient was transferred to a hospital bed and extubated. The patient was noted to be fully motor and sensory intact in the recovery room at the end of the procedure. The medications. All sponge instrument and needle counts were correct at the end of the procedure. Anesthesia: GETA Surgeon: Carlton Herrera Jr Was there an credit assistant present: No Estimated blood loss (cc): 20 Specimen: None Condition: stable Disposition: PACU
--- NOTE | 2019-04-09 12:08 | Anesthesia Evaluation Post Op ---
Date of Encounter: 04/09/19 Time of Encounter: 12:10 - Vital Signs Vital Signs: Vital Signs/O2 Sat/Glucose, Most Current Temp Pulse Resp BP Pulse Ox 04/09/19 11:55 97.4 F L 80 19 142/84 98 04/09/19 11:45 97.4 F L 80 19 136/84 99 04/09/19 11:35 80 17 142/81 100 04/09/19 11:25 79 15 131/76 100 04/09/19 11:15 97.8 F 80 12 124/73 98 - Lungs Lungs: Clear Ascult./Percussion - Airway Airway: Non-obstructed - Cardiovascular Regular Rate - Mental Status Mental Status: Alert & Oriented, Answers Appropriately - Pain Pain Scale: 1 - Nausea Vomiting Nausea Vomiting: Not Present - Hydration Hydration: Ice chips - Discharge PostOp Status: Transfer Patient to floor
[2019-04-09] MEDS ORDERED: ALPRAZolam 1 MG TABLET PO PRN (12:15)
[2019-04-09] MEDS ORDERED: Naloxone 0.4 MG/ML INJ IVP PRN (12:15)
[2019-04-09] MEDS ORDERED: INSULIN DETEMIR 25 UNIT SQ PRN (12:15)
[2019-04-09] MEDS ORDERED: Ondansetron 4 MG/2 ML VIAL IVP PRN (12:15)
[2019-04-09] MEDS ORDERED: NON-FORMULARY MEDICATION 1 EACH EACH (Adalimumab [Humira] 40 MG) SQ SCH (12:15)
[2019-04-09] MEDS ORDERED: hydrOXYzine pamoate 25 MG CAPSULE PO PRN (12:15)
[2019-04-09] MEDS ORDERED: Acetaminophen 325 MG TABLET PO PRN (12:15)
[2019-04-09] MEDS ORDERED: *HR* Dextrose 50 % in Water (Syg) 50 ML SYRINGE IVP PRN (12:51)
[2019-04-09] MEDS ORDERED: D5% in Water 1,000 ML IVC PRN (12:51)
[2019-04-09] MEDS ORDERED: Dextrose Gel 15 GM/37.5 ML TUBE PO PRN ×2 (12:51)
[2019-04-09] MEDS: *HR* OxyCODONE Immed Rel 5 MG TABLET PO PRN ×2 (13:26→18:57)
[2019-04-09] MEDS ORDERED: Ketorolac 30 MG/ML VIAL IVP ONE (15:52)
[2019-04-09] MEDS: Insulin LISPRO 300 UNITS/3 ML VIAL SQ SCH ×2 (17:01→20:42)
[2019-04-09] MEDS: [UNRECOGNIZED DRUG - OTHER] TP SCH (19:46)
[2019-04-09] MEDS: cloNIDine HCl 0.1 MG TABLET PO SCH (19:48)
[2019-04-10] MEDS: *HR* OxyCODONE Immed Rel 5 MG TABLET PO PRN ×3 (00:54→14:26)
[2019-04-10] MEDS: diazePAM 5 MG TABLET PO PRN ×2 (04:33→17:24)
[2019-04-10] MEDS: Aspirin Enteric Coated 81 MG Tablet PO SCH (08:30)
[2019-04-10] MEDS: Insulin LISPRO 300 UNITS/3 ML VIAL SQ SCH ×4 (08:31→21:01)
[2019-04-10] MEDS: cloNIDine HCl 0.1 MG TABLET PO SCH ×2 (08:31→21:01)
[2019-04-10] MEDS: [UNRECOGNIZED DRUG - OTHER] TP SCH ×2 (09:41→21:01)
[2019-04-10 15:59] LABS: Basophils % 0.3 %; Eosinophils # 0.1 K/mcL (0.0-0.6); Eosinophils % 1.3 %; Hemoglobin 10.4 g/dL (11.5-15.4); Immature Granulocytes % 0.5 % (0-4); Lymphocytes % 30.3 %; Mean Corpuscular HGB Conc 32.5 g/dL (31.6-35.5); Mean Corpuscular Hemoglobin 28.7 pg (28.0-33.3); Mean Corpuscular Volume 88.4 fL (83.0-100.0); Mean Platelet Volume 9.5 fL (9.4-12.4); Monocytes # 0.8 K/mcL (0.0-1.3); Monocytes % 8.4 %; Neutrophils # 5.9 K/mcL (1.6-8.9); Nucleated Red Blood Cells 0.2 /100 WBC (0); Platelet Count 282 K/mcL (140-400); Red Blood Count 3.62 M/mcL (3.82-4.97); Red Cell Distribution Width 13.8 % (11.5-14.5); Segmented Neutrophils % 59.2 %
--- NOTE | 2019-04-10 17:13 | Internal Medicine Consult Note ---
Date of Encounter: 04/10/19 Time of Encounter: 16:45 - Assessment and Plan (1) Hypoxia Current Visit: Yes Status: Acute Assessment and plan: certainly a component of postop atelectasis but pt also developed swelling in the neck and resultant dysphagia with CXR showing new opacity in left lung base. Pt is immunocompromised from the tx for RA and has had multiple hospitalizations for the last month therefore, it would not be unreasonable to treat per aspiration PNA +/- HCAP with broad spectrum abx despite the lack of leukocytosis or fever will start levaquin, 1 dose of vanc since PAT testing showed positive MRSA screen (unable to find records but pt is in contact isolation) strep/legionella ag NPO for now and speech eval tomorrow wean O2 as tolerated (2) Pneumonia Current Visit: Yes Status: Suspected Assessment and plan: abx and workup as above Qualifiers: Pneumonia type: aspiration pneumonia Aspiration pneumonia type: unspecified Laterality: left Lung location: lower lobe of lung Qualified Code(s): J69.0 - Pneumonitis due to inhalation of food and vomit (3) CVA (cerebral vascular accident) Current Visit: No Status: Chronic Assessment and plan: on ASA Qualifiers: CVA mechanism: unspecified Qualified Code(s): I63.9 - Cerebral infarction, unspecified (4) Cervical radiculopathy Current Visit: No Status: Chronic (5) T2DM (type 2 diabetes mellitus) Current Visit: No Status: Chronic Assessment and plan: poorly controlled post-operatively despite being on medium dose sliding scale add basal insulin Qualifiers: Diabetes mellitus assisted insulin use: without assisted use Diabetes mellitus complication status: without complication Qualified Code(s): E11.9 - Type 2 diabetes mellitus without complications - Time Spent With Patient Total time spent is greater than 50% in coordination of care (as documented) at patient's floor/unit and/or counseling patient: 25 - 35 minutes Internal Medicine - CN: HPI - Data of Consult Patient: known to practice within the last 3 years Requesting Physician: Carlton Herrera Jr MD - Consult Narrative Reason for consult: hypoxia History of present illness: Ms. Daniels is a 59 year old female with history of CVA, diabbetes, HTN, RA on MTX, who was admitted yesterday for anterior cervical decompression and fusion C4-7. Postoperatively, she complained of hoarseness, dysphagia, and mild shortness of breath upon ambulation with SpO2 dropping to 88% on room air. Hence hospitalist was consulted for further management. Patient is endorses intermittent cough but unable to produce significant amount of sputum due to soreness in the neck. She otherwise denies any chest pain, palpitation, orthopnea, PND, or leg swelling. No fever/chills or nausea/vomiting. No GI/ symptoms. At the time of my exam, she was afebrile and hemodynamically stable. She was saturating 98- 100% on 2 L of oxygen and when the oxygen was turned off, she continues to sat urate at 95% while remaining in bed. Labwork showed white blood cell count of 10. Cervical spine x-ray only showed prevertebral soft tissue swelling which is consistent with sequelae of anterior cervical discectomy and fusion and CXR demonstrated blunting of left costophrenic angle with airspace opacification. She also has linear atelectasis noted in left mid zone. Past Med Surg Social Fam HX - Past Medical History Attestation: Yes The following information was validated with the patient. Medical history: CVA, diabetes, GERD, hypertension, RA Additional medical history: Urge incontinence Psychiatric history: anxiety, depression - Past Surgical History Surgical History: appendectomy, cholecystectomy, orthopedic, other Additional surgical history: TUBAL. right knee surgery. back surgery. right kidney removed - Social History Smoking Status: Former smoker Smokeless Tobacco Status: No Alcohol use: none Drug use: none - Family History Father Hx Family Cardiac Disorders: Yes Mother Hx Family Cardiac Disorders: Yes All systems: reviewed and no additional remarkable complaints except as stated Internal Medicine - CN: Meds Adalimumab [Humira] 40 mg SQ Q2W 03/14/19 [History] hydrOXYzine HCl [Hydroxyzine HCl] 25 mg PO BID PRN 03/14/19 [History] ALPRAZolam [Xanax 1 MG Tablet] 1 mg PO BID PRN 04/09/19 [History] Aspirin [Lo-Dose Aspirin EC] 81 mg PO DAILY 04/09/19 [History] Calcipotriene [Dovonex] 1 appl TP BID 04/09/19 [History] Insulin DETEMIR [Levemir Flextouch] 25 units SQ QPM PRN 04/09/19 [History] Oxycodone HCl/Acetaminophen [Percocet 10-325 mg Tablet] 1 tab PO Q4H PRN 04/09/19 [History] cloNIDine HCl [Clonidine HCl] 0.2 mg PO BID 04/09/19 [History] Allergy/AdvReac Type Severity Reaction Status Date / Time tramadol Allergy Hypertension, Verified 04/01/19 09:40 Passes out TAPE AdvReac BLISTERS Uncoded 08/31/15 11:00 Hospitalist - CN: Exam - Constitutional Vitals: Temp Pulse Resp BP Pulse Ox 98.0 F 58 20 138/79 89 04/10/19 15:33 04/10/19 15:34 04/10/19 15:34 04/10/19 15:33 04/10/19 15:34 Exam: General: Alert and oriented, not in acute distress. Hoarseness noted HEENT:EOMI, pupils equal, round and reactive. Cardiovascular:Normal S1 & S2, No JVD. Pulse regular. Lungs: diminished bilaterally, no rhonchi/wheezes Abdomen:Soft, non-tender, no rigidity. Extremities: Calves supple, no joint swelling Neurological:Normal cognition and motor skills. Non-focal Skin:Normal color, no rash, no lesions. Pulses:Carotid and radial pulses normal +2. Rest of the physical exam is non contributory Internal Medicine - CN: Reslt - Labs CBC & Chem 7: 04/10/19 15:35 Labs: Short CBC 04/10/19 Range/Units 15:35 WBC 10.0 (4.3-11.1) K/mcL Hgb 10.4 L (11.5-15.4) g/dL Hct 32.0 L (35.3-44.9) % Plt Count 282 (140-400) K/mcL Neutrophils # 5.9 (1.6-8.9) K/mcL - Impressions Impressions Cervical Spine X-Ray 04/10/19 12:28 IMPRESSION: Sequelae of anterior cervical discectomy and fusion from C4-C7 without adverse features evident. D/ / Phillip Howell MD / Phillip Howell MD Interpreting Provider: Phillip Howell MD Chest X-Ray 04/10/19 13:24 IMPRESSION: Increased opacification left lung base could represent left basilar atelectasis or pneumonia combined with left pleural fluid D/ / Jordin Stoddard MD / Jordin Stoddard MD Interpreting Provider: Jordin Stoddard MD Consult Discharge Plan - Plan Referrals: Eliz Mcgill MD [Primary Care Provider] -
[2019-04-10] MEDS: levoFLOXacin 750 MG/150 ML 750 MG/150 ML BAG IVPB SCH (17:44)
[2019-04-10 18:43] LABS: BUN/Creatinine Ratio 20 (6-26); Blood Urea Nitrogen 17 mg/dL (8-23); eGFR For African Americans > 60 (> 60); eGFR For Non-African Americans > 60 (> 60)
[2019-04-10] MEDS ORDERED: Ketorolac 30 MG/ML VIAL IVP ONE (18:55)
[2019-04-10] MEDS ORDERED: Insulin DETEMIR 100 UNIT/ML X5UNITS SQ SCH (21:00)
[2019-04-11] MEDS: *HR* OxyCODONE Immed Rel 5 MG TABLET PO PRN ×2 (06:22→12:16)
[2019-04-11] MEDS: Insulin LISPRO 300 UNITS/3 ML VIAL SQ SCH ×3 (08:28→17:48)
[2019-04-11] MEDS: cloNIDine HCl 0.1 MG TABLET PO SCH (10:14)
[2019-04-11] MEDS: *HR* HYDROcodone/Acet 5/325 mg TABLET PO PRN ×2 (10:14→16:01)
[2019-04-11] MEDS: Aspirin Enteric Coated 81 MG Tablet PO SCH (10:16)
[2019-04-11] MEDS: diazePAM 5 MG TABLET PO PRN (10:16)
--- NOTE | 2019-04-11 10:16 | Spine Progress Note ---
Date of Encounter: 04/10/19 Time of Encounter: 13:05 - Assessment and Plan (1) Status post cervical spinal fusion Current Visit: Yes Status: Acute We are going to obtain a hospitalist consult due to her respiratory distress cc including a chest x-ray. We will also get a speech evaluation for her dysphagia symptoms. Subjective Principal diagnosis: Status post cervical fusion, swallowing issues. Interval history: The patient is complaining of some intermittent dysphagia as well as bouts of respiratory distress when exerting herself. She was set from 99% to the mid 80s with ambulation. She says she has a choking sensation with some foods, liquids period. She denies significant radicular symptoms at this time. YVES Glez MD On exam afebrile vital signs stable. She is neurovascularly intact with regard to bilateral upper extremities. Incision is clean dry and intact. Objective Vital signs: Vital Signs Temp Pulse Resp BP Pulse Ox 04/11/19 07:06 98.4 F 59 16 143/85 95 04/11/19 03:38 98.4 F 58 19 130/80 97 04/10/19 22:46 97.7 F 57 17 135/84 94 04/10/19 18:41 98.3 F 64 18 174/84 97 04/10/19 15:34 58 20 89 04/10/19 15:33 98.0 F 58 16 138/79 98 04/10/19 12:29 100 04/10/19 12:26 61 20 143/79 94 04/10/19 10:45 98.3 F 56 12 125/78 95 Intake and Output 04/10/19 04/11/19 04/11/19 23:59 07:59 15:59 Output Total 600 / 1425 200 / 200 Balance -600 / -595 -200 / -200 Output: Urine 600 / 1000 200 / 200 Other: # Voids 1 Blood Glucose* 236 194 - Labs CBC & BMP: 04/10/19 15:35 04/10/19 18:02 Labs: Abnormal lab results RBC 3.62 M/mcL (3.82-4.97) L 04/10/19 15:35 Hgb 10.4 g/dL (11.5-15.4) L 04/10/19 15:35 Hct 32.0 % (35.3-44.9) L 04/10/19 15:35 Nucleated RBCs/100 WBC 0.2 /100 WBC (0) H 04/10/19 15:35 POC Glucose 211 mg/dL (70-99) H 04/10/19 17:17 Consult Discharge Plan - Plan Referrals: Eliz Mcgill MD [Primary Care Provider] -
[2019-04-11] MEDS: [UNRECOGNIZED DRUG - OTHER] TP SCH (10:17)
[2019-04-11] MEDS: levoFLOXacin 750 MG/150 ML 750 MG/150 ML BAG IVPB SCH (10:17)
--- NOTE | 2019-04-11 11:52 | Discharge Summary ---
Date of Encounter: 04/11/19 Time of Encounter: 11:47 - Hospital Course Hospital course: Ms. Daniels is a 59 year old female s/p Anterior cervical decompression and fusion C4-C7 [Cervical stenosis, cervical radiculopathy, focal motor deficit] 04/09/19 Patient developed respiratory complications on POD#1. Hospitalist consulted and diagnosed with pneumonia. Progressed from intravenous analgesic needs to oral analgesic needs only. Remained neurovascularly intact and mobilized satisfactorily. All intraoperative and/or postoperative radiographic studies were satisfactory. Patient course and disposition discussed with Dr. Herrera. Patient is discharged with plan for rehabilitation and follow-up in 2 weeks post discharge on analgesic medication and patient's home medications. - Time Spent with Patient Total time spent providing and/or coordinating discharge services: - Discharge Medications Prescriptions: New Docusate Sodium [Colace] 100 mg PO BID 5 Days #10 capsule OxyCODONE Immed Rel [Roxicodone 5 MG] 5 mg PO Q6HR PRN 5 Days #20 tablet PRN Reason: Severe Pain diazePAM [Valium] 5 mg PO TID PRN 7 Days #21 tablet PRN Reason: Muscle Spasm levoFLOXacin [Levaquin] 750 mg PO DAILY 5 Days #5 tablet Continued Adalimumab [Humira] 40 mg SQ Q2W ALPRAZolam [Xanax 1 MG Tablet] 1 mg PO BID PRN PRN Reason: Anxiety Aspirin [Lo-Dose Aspirin EC] 81 mg PO DAILY Calcipotriene [Dovonex] 1 appl TP BID cloNIDine HCl [Clonidine HCl] 0.2 mg PO BID Insulin DETEMIR [Levemir Flextouch] 25 units SQ QPM PRN PRN Reason: HIGH BLOOD SUGAR Oxycodone HCl/Acetaminophen [Percocet 10-325 mg Tablet] 1 tab PO Q4H PRN PRN Reason: Pain Discontinued hydrOXYzine HCl [Hydroxyzine HCl] 25 mg PO BID PRN PRN Reason: Itching Home Medications: Adalimumab [Humira] 40 mg SQ Q2W 03/14/19 [History] ALPRAZolam [Xanax 1 MG Tablet] 1 mg PO BID PRN 04/09/19 [History] Aspirin [Lo-Dose Aspirin EC] 81 mg PO DAILY 04/09/19 [History] Calcipotriene [Dovonex] 1 appl TP BID 04/09/19 [History] Insulin DETEMIR [Levemir Flextouch] 25 units SQ QPM PRN 04/09/19 [History] Oxycodone HCl/Acetaminophen [Percocet 10-325 mg Tablet] 1 tab PO Q4H PRN 04/09/19 [History] cloNIDine HCl [Clonidine HCl] 0.2 mg PO BID 04/09/19 [History] Docusate Sodium [Colace] 100 mg PO BID 5 Days #10 capsule 04/11/19 [Rx] OxyCODONE Immed Rel [Roxicodone 5 MG] 5 mg PO Q6HR PRN 5 Days #20 tablet 04/11/19 [Rx] diazePAM [Valium] 5 mg PO TID PRN 7 Days #21 tablet 04/11/19 [Rx] levoFLOXacin [Levaquin] 750 mg PO DAILY 5 Days #5 tablet 04/11/19 [Rx] Allergies/Adverse Reactions: Allergy/AdvReac Type Severity Reaction Status Date / Time tramadol Allergy Hypertension, Verified 04/01/19 09:40 Passes out TAPE AdvReac BLISTERS Uncoded 08/31/15 11:00 Date of admission: 04/09/19 Primary care physician: Eliz Mcgill MD Consults: 04/09/19 12:15 Consult to Occupational Therapy [CONS] Routine Comment: Evaluate, develop and implement POC Reason for Consult: Postoperative rehabilitation Does patient have active BEDREST order?: No Is patient medically & hemodynamically stable?: Yes Patient assessed for mobility or mobilized this visit?: No Consult to Physical Therapy [CONS] Routine Comment: Evaluate, develop and implement POC Reason for Consult: Postoperative rehabilitation Does patient have active BEDREST order?: No Is patient medically & hemodynamically stable?: Yes Patient assessed for mobility or mobilized this visit?: No Consult to Spine Navigator [CONS] [CONS] Routine 04/09/19 13:21 Consult to Pastoral Services [CONS] Routine Comment: 04/10/19 16:30 Consult to Hospitalist [CONS] Routine Consulting Provider: Hospitalist Justyna Reason for Consult: Shortness of breath on exertion Call Completed: Yes Discharging clinician: Carlton Herrera Jr Anticipated date of discharge: 04/11/19 - VTE Documentation of Mechanical Device: Graduated compression elastic hosiery Labs on day of discharge: Labs from last 24 hours 04/10/19 04/10/19 04/10/19 18:02 17:17 15:35 WBC 10.0 RBC 3.62 L Hgb 10.4 L Hct 32.0 L MCV 88.4 MCH 28.7 MCHC 32.5 RDW 13.8 Plt Count 282 MPV 9.5 Immature Gran % 0.5 Seg Neutrophils % 59.2 Lymphocytes % 30.3 Monocytes % 8.4 Eosinophils % 1.3 Basophils % 0.3 Neutrophils # 5.9 Lymphocytes # 3.0 Monocytes # 0.8 Eosinophils # 0.1 Basophils # 0.0 Nucleated RBCs/100 WBC 0.2 H BUN 17 Creatinine 0.86 Est GFR ( Amer) > 60 Est GFR (Non-Af Amer) > 60 BUN/Creatinine Ratio 20 POC Glucose 211 H 04/10/19 04/10/19 04/10/19 11:07 07:41 01:01 WBC RBC Hgb Hct MCV MCH MCHC RDW Plt Count MPV Immature Gran % Seg Neutrophils % Lymphocytes % Monocytes % Eosinophils % Basophils % Neutrophils # Lymphocytes # Monocytes # Eosinophils # Basophils # Nucleated RBCs/100 WBC BUN Creatinine Est GFR ( Amer) Est GFR (Non-Af Amer) BUN/Creatinine Ratio POC Glucose 284 H 263 H 235 H 04/09/19 04/09/19 16:23 12:22 WBC RBC Hgb Hct MCV MCH MCHC RDW Plt Count MPV Immature Gran % Seg Neutrophils % Lymphocytes % Monocytes % Eosinophils % Basophils % Neutrophils # Lymphocytes # Monocytes # Eosinophils # Basophils # Nucleated RBCs/100 WBC BUN Creatinine Est GFR ( Amer) Est GFR (Non-Af Amer) BUN/Creatinine Ratio POC Glucose 323 H 163 H - Impressions ITS Impressions Cervical Spine X-Ray 04/09/19 08:18 IMPRESSION: Intraprocedural fluoroscopic spot images as above. See separate procedure report for more information. D/ / 04/09/2019 11:11:43 Toño Zambrano MD / Shira Urbina Interpreting Provider: Toño Zambrano MD Fluoroscopy 04/09/19 08:18 IMPRESSION: Intraprocedural fluoroscopic spot images as above. See separate procedure report for more information. D/ / 04/09/2019 11:11:43 Toño Zambrano MD / Shira Urbina Interpreting Provider: Toño Zambrano MD Cervical Spine X-Ray 04/10/19 12:28 IMPRESSION: Sequelae of anterior cervical discectomy and fusion from C4-C7 without adverse features evident. D/ / Phillip Howell MD / Phillip Howell MD Interpreting Provider: Phillip Howell MD Chest X-Ray 04/10/19 13:24 IMPRESSION: Increased opacification left lung base could represent left basilar atelectasis or pneumonia combined with left pleural fluid D/ / Jordin Stoddard MD / Jordin Stoddard MD Interpreting Provider: Jordin Stoddard MD - Patient Status Disposition: Transfer SNF Condition: Fair Functional capacity at discharge: uses cane/walker Overall status at discharge: patient is progressing back to baseline - Discharge Instructions Follow Up With: Eliz Mcgill MD [Primary Care Provider] - Additional Instructions: Discharge Instructions: Cervical Please call [facility] ([phone]), your Primary Care Physician, or report to the ER if you have any of the following symptoms: Fever greater that 101.5, increased pain/redness/drainage/odor for your incision site or any other concerning symptoms. ACTIVITY * May Shower * No Tub Baths * No Smoking * No Swimming * No Driving * Wear Collar when up walking * Incentive Spirometer 10 times an hour MEDICATIONS: Upon discharge resume your home medications. Take all the medications as prescribed. Take a stool softener if taking narcotic pain medications. Stool softeners are only effective if you drink enough fluids. Drink 6-8 glass of water or fluids a day, unless this is not allowed for another health problem. Despite using stool softeners, if you haven't had a bowel movement in 3 days, please switch to a gentle laxative. Gentle laxatives are sold over the counter. You should have a bowel movement within 24 hours, if not call the office. You will be discharged from the hospital with a prescription for pain medication. You are encouraged to decrease the use of narcotic pain medication as tolerated. Should you require a refill, please call the office. It is best to call 48-72 hours in advance of needing a prescription refill so you don't run out of medication. WOUND CARE: Leave steri-strips in place until they fall off on their own. Pat dry when you get out of the shower. FOLLOW-UP: Please follow up with your surgeon in the orthopedic clinic in 2 weeks from the day of surgery. References: [employer] (www.apta.org) - Diet and Activity Activity: as per physical therapy Diet: advance to your usual diet
[2019-04-11 16:05] VITALS: BP 119/74
--- NOTE | 2019-04-11 17:21 | Internal Med Progress Note ---
Hospitalist Progress Note - Encounter Date of Encounter: 04/11/19 Time of Encounter: 09:18 - Subjective Interval History: Seen at bedside. No acute complaints. No overnight events. Denies chest pain, shortness of breath, dizziness, nausea, vomiting, fever, chills. Endorses pain at the surgical site. - Exam Vitals: Temp Pulse Resp BP Pulse Ox 98.0 F 60 17 119/74 96 04/11/19 16:04 04/11/19 16:04 04/11/19 16:04 04/11/19 16:04 04/11/19 16:04 Exam: General: Alert and oriented, no physical distress, able to follow commands. HEENT: No thyromegaly, no lymphadenopathy, no discharge. Pain with movement of the neck. Eyes: No discharge. Respiratory: Normal vesicular breathing, no added sounds, breathing equal in both sides. CVS: Normal heart sounds, no murmurs, no edema. Extremities: No peripheral edema, peripheral pulses intact. Lymph nodes: No lymphadenopathy Gastrointestinal: Soft, nontender abdomen, normal abdominal sounds. No dist ention noted. Genitourinary: No paravertebral tenderness. Neurological: Alert and oriented. No focal deficits. Cranial nerves II-XII intact. - Assessment and Plan (1) Hypoxia Current Visit: Yes Status: Acute Assessment and Plan: Currently saturating in high 90s on room air at rest. Likely combination of pneumonia and atelectestis. CXR showing new opacity in left lung base. Continue levofloxacin. Stable for discharge from medical point of view. Should be continued for levofloxacin for 5 more days. (2) Pneumonia Current Visit: Yes Status: Suspected Assessment and Plan: Antibiotics and mentioned above. (3) T2DM (type 2 diabetes mellitus) Current Visit: No Status: Chronic Assessment and Plan: Continue the current regimen. (4) CVA (cerebral vascular accident) Current Visit: No Status: Chronic Assessment and Plan: Continue aspirin. - Time Spent with Patient Total time spent is greater than 50% in coordination of care (as documented) at patient's floor/unit and/or counseling patient: Internal Medicine: Result - Labs CBC & Chem 7: 04/10/19 15:35 04/10/19 18:02 Labs: BMP 04/10/19 18:02 BUN 17 Creatinine 0.86 - VTE Documentation of Mechanical Device: Graduated compression elastic hosiery Consult Discharge Plan - Plan Additional Instructions: Discharge Instructions: Cervical Please call [facility] ([phone]), your Primary Care Physician, or report to the ER if you have any of the following symptoms: Fever greater that 101.5, increased pain/redness/drainage/odor for your incision site or any other concerning symptoms. ACTIVITY * May Shower * No Tub Baths * No Smoking * No Swimming * No Driving * Wear Collar when up walking * Incentive Spirometer 10 times an hour MEDICATIONS: Upon discharge resume your home medications. Take all the medicat ions as prescribed. Take a stool softener if taking narcotic pain medications. Stool softeners are only effective if you drink enough fluids. Drink 6-8 glass of water or fluids a day, unless this is not allowed for another health problem. Despite using stool softeners, if you haven't had a bowel movement in 3 days, please switch to a gentle laxative. Gentle laxatives are sold over the counter. You should have a bowel movement within 24 hours, if not call the office. You will be discharged from the hospital with a prescription for pain medication. You are encouraged to decrease the use of narcotic pain medication as tolerated. Should you require a refill, please call the office. It is best to call 48-72 hours in advance of needing a prescription refill so you don't run out of medication. WOUND CARE: Leave steri-strips in place until they fall off on their own. Pat dry when you get out of the shower. FOLLOW-UP: Please follow up with your surgeon in the orthopedic clinic in 2 weeks from the day of surgery. References: [employer] (www.apta.org) Referrals: Eliz Mcgill MD [Primary Care Provider] - (2) Pneumonia Qualifiers: Pneumonia type: aspiration pneumonia Aspiration pneumonia type: unspecified Laterality: left Lung location: lower lobe of lung Qualified Code(s): J69.0 - Pneumonitis due to inhalation of food and vomit (3) T2DM (type 2 diabetes mellitus) Qualifiers: Diabetes mellitus senior care insulin use: without senior care use Diabetes rabia litus complication status: without complication Qualified Code(s): E11.9 - Type 2 diabetes mellitus without complications (4) CVA (cerebral vascular accident) Qualifiers: CVA mechanism: unspecified Qualified Code(s): I63.9 - Cerebral infarction, unspecified
== END 2019-04-11 18:15 | DRG 321 ==
LOC: SUATTDRO → SAMDAY 06:12 → 3NENU 12:21
PROVIDERS: ADMIT Orthopaedic Surgery Orthopaedic Surgery of the Spine; ATTEND Orthopaedic Surgery Orthopaedic Surgery of the Spine